=== PATIENT | male | born 1980 | race Two or more races ===

== ENCOUNTER 2021-01-31 10:39 | Inpatient (IN) | payer BC, SELFPAY ==
[2021-01-31] VITALS (10 sets, daily range): BP systolic 122–179; BP diastolic 69–90; PULSE 53–75; RESP 16–18; TEMP 37.1; O2SAT 96–98; BMI 37.4
--- NOTE | ~2021-01-31 | XR_ITS ---
EXAMINATION: XR CHEST CLINICAL INFORMATION: Chest pain. COMPARISON: 09/23/19. TECHNIQUE: Frontal view of the chest was obtained. FINDINGS: No significant abnormality is noted involving the heart, lungs, mediastinum, bony thorax or soft tissues. XR/XR chest 1V IMPRESSION: Unremarkable examination.
--- NOTE | 2021-01-31 10:51 | ED_ITS ---
HPI - Chest Pain General Chief Complaint: Chest Pain Stated Complaint: CHEST PAIN Time Seen by Provider: 01/31/21 10:48 Source: patient Mode of arrival: ambulatory Limitations: no limitations History of Present Illness HPI narrative: 40 yo male with HTN, pre-diabetic, hx of abnormal EKGs had remote stress test several years ago comes in with 1 day of central chest pain and dyspnea - has been burping a lot and having BMs after eating fries and wings, he has also noted 2 weeks of worsening AMADOR MD complaint: chest pain Pertinent past history: other (abnormal EKG) Onset (ago): day(s) (1) Timing of current episode: constant Prior episodes: Yes Onset: during rest and during exertion Pain location: left chest Pain radiation: left arm Severity: moderate Quality: aching and heaviness Relieving factors: nothing Exacerbating factors: nothing Context: other (ate heavily prior to event) Associated symptoms: dyspnea Treatment prior to arrival: none Related Data Allergies Allergy/AdvReac Type Severity Reaction Status Date / Time No Known Allergies Allergy Unverified 07/03/20 19:43 [No Known Allergies*] Review of Systems Review of Systems: Constitutional : No Weight loss, No Fever, No Chills ENT/Mouth : No sore throat, No Rhinorrhea Eyes: No Eye Pain, No Swelling Cardiovascular : pos Chest Pain, pos SOB, no Dyspnea on Exertion, No Orthopnea, No Edema, No Palpitations Respiratory : No Cough, No Sputum Gastrointestinal : no Nausea, No Vomiting, No Diarrhea, No abdominal Pain, No Hematochezia, No Melena Genitourinary : No Dysuria, No Urinary Frequency Musculoskeletal : No joint pain, No Myalgias, No Joint Swelling Skin : No Skin Lesions, No rash Neuro : No Weakness, No Numbness, No Dizziness, No Headache Psych : No Anxiety/Panic, No Depression Heme/Lymph: No Bruising, No Lymphadenopathy Endocrine : No Polyuria, No Polydipsia All other systems reviewed and are negative PMFSH Past Medical History Attestation statement: The following information was validated with the patient. Medical History HTN (hypertension) Family History Family History (Updated 01/31/21 @ 11:05 by Reyna Cummings DO) Other Heart disease Social History Social History Alcohol intake: never Smoking Status: Never smoker Use of substances other than those prescribed or required for medical reasons: No Advance Directives: No Advance Directives Information Provided: No Physical Exam Vital Signs: Vital Signs: Last Vital Signs Temp 98.7 F 01/31/21 10:41 Pulse 70 01/31/21 12:26 Resp 16 01/31/21 12:26 BP 154/90 H 01/31/21 12:26 Pulse Ox 98 01/31/21 12:26 Body Mass Index 37.4 Appearance: Alert. Oriented X3. No acute distress. Eyes: Pupils equal, round and reactive to light. ENT: Pharynx normal. Neck: Normal inspection. Neck supple. CVS: Normal heart rate and rhythm. Pulses normal. Respiratory: No respiratory distress. Breath sounds normal. Abdomen: Soft and nontender. Skin: Skin warm and dry. Normal skin color. Normal skin turgor. Extremities: No lower extremity edema. No calf ttp Neuro: Oriented X 3. No motor deficit. No sensory deficit. Course Course Course Narrative: refused morphine, will attempt nitro, I was unaware of the morphine refusal call to Cardiology [id number] heparinize and admit make pain free if remains with chest pain will need transfer Dr. Felipe patient improving with nitro, some residual pain but he is very scared now - IV fentayl ordered patient much more calm and improved after fentanyl, notified cardiology will admit here as planned MDM - Chest Pain MDM Narrative Medical decision making narrative: 40 yo male with hx of HTN, prediabetic nonsmoker, fam hx of heart disease but in father and brother who used cocaine and other drugs comes in with 2 weeks of worsening AMADOR as well as chest pain since yesterday with associated dyspnea after eating bulgarian fries and wings pain atypical for PE but does have some ACS risk factors although this could be GI given his belching and occurrence after wings and fries - labs, troponin x 2, CXR, IV morphine for pain, dispo per results and findings, no change from prior EKG Lab Data Result diagrams: 01/31/21 11:18 01/31/21 11:18 Labs: Lab Results 01/31/21 01/31/21 01/31/21 Range/Units 11:18 11:18 11:18 WBC 10.9 H (4.8-10.8) X10*3/uL RBC 5.90 H (4.60-5.80) X10*6/uL Hgb 16.5 (14.0-18.0) g/dl Hct 49.3 (42-52) % MCV 83.6 (80-98) fL MCH 28.0 (27.0-33.0) pg MCHC 33.5 (31.0-36.0) g/dl RDW 12.9 (11.0-16.0) % Plt Count 304 (160-400) X10*3/uL MPV 9.5 (9.4-12.4) fL Immature Gran % (Auto) 0.4 (0.0-0.4) % Neut % (Auto) 64.6 (45-73) % Lymph % (Auto) 26.5 (20-40) % [place] % (Auto) 7.5 (2-11) % Eos % (Auto) 0.4 (0-4) % Baso % (Auto) 0.6 (0-2) % Lymph # (Auto) 2.9 (1.2-4.9) X10*3/uL [place] # (Auto) 0.8 (0.1-1.2) X10*3/uL Eos # (Auto) 0.0 (0.0-0.4) X10*3/uL Baso # (Auto) 0.1 (0.0-0.2) X10*3/uL Abs Immat Gran (auto) 0.04 H (0.00-0.03) X10*3/uL Absolute Neuts (auto) 7.0 (2.0-8.3) X10*3/uL Absolute Nucleated RBC 0.000 (0.0-0.012) X10*3/uL Nucleated RBC % (auto) 0.0 (0.0-0.2) /100WBC PT (10.8-13.0) SEC INR (0.9-1.1) APTT (24.1-38.0) SEC Sodium 140 (135-145) mmol/L Potassium 4.4 (3.3-5.1) mmol/L Chloride 104 (96-108) mmol/L Carbon Dioxide 24 (22-29) mmol/L Anion Gap 16 (12-20) BUN 13 (9-16) mg/dL Creatinine 0.94 (0.5-1.4) mg/dL Estim Creat Clear Calc 126.5 Estimated GFR > 60 Random Glucose 137 H (60-115) mg/dL Calcium 9.3 (8.4-10.2) mg/dL Magnesium 1.9 (1.6-2.6) mg/dL Total Bilirubin 0.5 (0.0-1.0) mg/dL Direct Bilirubin 0.2 (0.0-0.5) mg/dL AST 45 H (5-37) U/L ALT 44 H (0-40) U/L Alkaline Phosphatase 125 H (39-117) U/L Troponin I High Sens (<3.5-35.0) ng/L Total Protein 7.3 (6.5-8.0) g/dL Albumin 4.3 (3.5-5.0) g/dL Lipase 16 (8-78) U/L 01/31/21 01/31/21 Range/Units 11:19 12:08 WBC (4.8-10.8) X10*3/uL RBC (4.60-5.80) X10*6/uL Hgb (14.0-18.0) g/dl Hct (42-52) % MCV (80-98) fL MCH (27.0-33.0) pg MCHC (31.0-36.0) g/dl RDW (11.0-16.0) % Plt Count (160-400) X10*3/uL MPV (9.4-12.4) fL Immature Gran % (Auto) (0.0-0.4) % Neut % (Auto) (45-73) % Lymph % (Auto) (20-40) % [place] % (Auto) (2-11) % Eos % (Auto) (0-4) % Baso % (Auto) (0-2) % Lymph # (Auto) (1.2-4.9) X10*3/uL [place] # (Auto) (0.1-1.2) X10*3/uL Eos # (Auto) (0.0-0.4) X10*3/uL Baso # (Auto) (0.0-0.2) X10*3/uL Abs Immat Gran (auto) (0.00-0.03) X10*3/uL Absolute Neuts (auto) (2.0-8.3) X10*3/uL Absolute Nucleated RBC (0.0-0.012) X10*3/uL Nucleated RBC % (auto) (0.0-0.2) /100WBC PT 13.5 H (10.8-13.0) SEC INR 1.1 (0.9-1.1) APTT 35.4 (24.1-38.0) SEC Sodium (135-145) mmol/L Potassium (3.3-5.1) mmol/L Chloride (96-108) mmol/L Carbon Dioxide (22-29) mmol/L Anion Gap (12-20) BUN (9-16) mg/dL Creatinine (0.5-1.4) mg/dL Estim Creat Clear Calc Estimated GFR Random Glucose (60-115) mg/dL Calcium (8.4-10.2) mg/dL Magnesium (1.6-2.6) mg/dL Total Bilirubin (0.0-1.0) mg/dL Direct Bilirubin (0.0-0.5) mg/dL AST (5-37) U/L ALT (0-40) U/L Alkaline Phosphatase (39-117) U/L Troponin I High Sens 2294.0 H (<3.5-35.0) ng/L Total Protein (6.5-8.0) g/dL Albumin (3.5-5.0) g/dL Lipase (8-78) U/L ECG Data ECG #1: Attestation: I personally reviewed and interpreted this ECG as follows: ECG interpretation date: 01/31/21 ECG interpretation time: 10:52 Interpretation: Rate: 58 Rhythm: sinus bradycardia [place]: normal Normal P waves. Normal DONALD. Normal QRS complex. ST T wave : no ALETHA, inverted I aVL, V4-V6 qTC: normal prior studies: no change from Sep 2019 The study has been interpreted contemporaneously by me. . Discharge Plan Discharge Clinical Impression: Non-ST elevation [place] (NSTEMI), Abnormal ECG Chest pain Qualifiers: Chest pain type: unspecified Qualified Code(s): R07.9 - Chest pain, unspecified Patient Disposition: Admitted As Inpatient
--- NOTE | 2021-01-31 11:30 | ECG_ITS ---
Test Reason : JENNIFER PAIN Blood Pressure : / mmHG Vent. Rate : 058 BPM Atrial Rate : 058 BPM P-R Int : 150 ms QRS Dur : 088 ms QT Int : 428 ms P-R-T Axes : 038 030 186 degrees QTc Int : [address] & Marked T-wave abnormality, consider inferolateral ischemia Abnormal ECG When compared with ECG of 23-SEP-2019 10:23, Vent. rate has decreased BY 28 BPM Referred By: Kwadwo Alcantara Electronically Signed By:Jamey Felipe
[2021-01-31 11:36] LABS: MANUAL DIFF FLAG NO
[2021-01-31] MEDS: Magnesium Hydrox/Alum Hydrox 30 ML ORAL.SUSP PO (11:39)
[2021-01-31] MEDS: Lidocaine HCl Viscous 2 % 15 ML SOLUTION MUCOUS MEM (11:39)
[2021-01-31] MEDS: ondansetron HCL 4 MG/2 ML VIAL IVPUSH (11:39)
[2021-01-31 11:43] LABS: Basophils Absolute Auto 0.1 X10*3/uL (0.0-0.2); Basophils Percent Auto 0.6 % (0-2); Eosinophils Percent Auto 0.4 % (0-4); Hematocrit 49.3 % (42-52); Hemoglobin 16.5 g/dl (14.0-18.0); Imm Gran Abs Auto 0.04 X10*3/uL (0.00-0.03); Imm Gran Pct Auto 0.4 % (0.0-0.4); Lymphocytes Absolute Auto 2.9 X10*3/uL (1.2-4.9); Lymphocytes Percent Auto 26.5 % (20-40); Mean Corpuscular HGB Conc 33.5 g/dl (31.0-36.0); Mean Corpuscular Volume 83.6 fL (80-98); Mean Platelet Volume 9.5 fL (9.4-12.4); Monocytes Absolute Auto 0.8 X10*3/uL (0.1-1.2); Monocytes Percent Auto 7.5 % (2-11); Neutrophils Percent Auto 64.6 % (45-73); Platelet Count 304 X10*3/uL (160-400); Red Cell Distribution Width 12.9 % (11.0-16.0); White Blood Count 10.9 X10*3/uL (4.8-10.8)
[2021-01-31 12:06] LABS: Lipase 16 U/L (8-78)
[2021-01-31 12:13] LABS: Alanine Aminotransferase 44 U/L (0-40); Albumin Level 4.3 g/dL (3.5-5.0); Alkaline Phosphatase 125 U/L (39-117); Anion Gap 16 (12-20); Aspartate Amino Transferase 45 U/L (5-37); Bilirubin Direct 0.2 mg/dL (0.0-0.5); Bilirubin Total 0.5 mg/dL (0.0-1.0); Blood Urea Nitrogen 13 mg/dL (9-16); Calcium 9.3 mg/dL (8.4-10.2); Carbon Dioxide 24 mmol/L (22-29); Chloride 104 mmol/L (96-108); Creatinine Clr Calc Pharmacy 126.5; Estimated Glomerular Filt Rate > 60; Glucose Random 137 mg/dL (60-115); Magnesium 1.9 mg/dL (1.6-2.6); Potassium 4.4 mmol/L (3.3-5.1); Sodium 140 mmol/L (135-145); Total Protein 7.3 g/dL (6.5-8.0)
[2021-01-31 12:21] LABS: INTERNATIONAL NORM RATIO 1.1 (0.9-1.1); Prothrombin Time 13.5 SEC (10.8-13.0)
[2021-01-31 12:23] LABS: Partial Thromboplastin Time 35.4 SEC (24.1-38.0)
[2021-01-31] MEDS: Aspirin 81 MG TAB.CHEW 324 MG PO (12:31)
[2021-01-31] MEDS: Atorvastatin Calcium 80 MG TABLET PO (12:32)
[2021-01-31] MEDS: Nitroglycerin 2 % Oint 1 GM Packet 1 INCH TRANSDERMA (12:32)
[2021-01-31] MEDS: fentaNYL citrate/PF 100 MCG/2 ML VIAL 50 MCG IVPUSH (13:01)
[2021-01-31] MEDS: Heparin Sodium,Porcine 5,000 UNIT/ML VIAL 4000 UNIT IVPUSH (13:02)
[2021-01-31] MEDS: Heparin Sodium,Porcine/1/2NS 25,000 UNIT/250 ML IV.SOLN 15.62 UNIT IVCONT (13:14)
--- NOTE | 2021-01-31 14:46 | P.EN_ITS ---
Event Note Date of Service: 01/31/21 Event Note: Past medical history of hypertension, prediabetic, nonsmoker, family history of coronary artery disease in brother and father per with history of cocaine use history of abnormal EKG is status post remote stress test several years ago presented to [facility] with chest discomfort on Tuesday duration and shortness of breath on exertion of 2 week duration In ER workup revealed elevated troponin 2294, EKGs abnormal with T-wave inversions in lateral leads but not changed since September 2019, chest x-ray unremarkable Patient chest pain improved with use of IV morphine, nitro and IV fentanyl, patient now complaining of 1/10 chest pain and denies shortness of breath On examination Patient awake alert in no distress Neck no JVD Lungs clear to auscultation Heart regular rate rhythm Extremities no edema Assessment and plan Non ST-elevation DE will admit patient to intermediate care unit on IV heparin, aspirin a statins and beta-vel, obtain lipid profile, echocardiogram, cardiology consult, if noted to have recurrent chest discomfort, change in EKG will discuss with Cardiology for transfer to [facility] for cardiac catheterization.
[2021-01-31] MEDS: Acetaminophen 325 MG TABLET 650 MG PO ×2 (14:49→20:38)
--- NOTE | 2021-01-31 15:06 | P.HPHOSP_ITS ---
History of Present Illness Date of Service: 01/31/21 <Steph Alva NP - Last Filed: 01/31/21 17:56> Chief Complaint: Chest pain <Steph Alva NP - Last Filed: 01/31/21 17:56> 40 year old man presenting with chest pain that started yesterday. He reported that he had been eatingAnd chicken wings started itching and central chest pain. He did report last 2 weeks he has increasing dyspnea. He history and prediabetes. Report his brother both coronary artery disease. In the ER he was given nitroglycerin, fentanyl, Lipitor and full-dose aspirin. His pain did seem to subside and rates it as a 1/10 at this time. He was also started on an IV heparin drip. His initial troponin was 2294. EKG showed ST depressions although previous EKG from before showed the same. He will be admitted for [facility] her management and treatment of NSTEMI. <Steph Alva NP - Last Filed: 01/31/21 17:56> Review of Systems Review of Systems: Denies any recent fever chills or decrease in appetite respiratory denies any shortness of breath coverage production cardiovascular See HPI gastrointestinal denies any dysphagia abdominal pain nausea vomiting or diarrhea genitourinary denies any dysuria frequency or hematuria musculoskeletal denies any joint pain or swelling neuropsych denies any weakness or seizures all other systems reviewed are negative <Steph Alva NP - Last Filed: 01/31/21 17:56> [facility] Medical History: Medical History HTN (hypertension) <Steph Alva NP - Last Filed: 01/31/21 17:56> Family History: Family History (Updated 01/31/21 @ 11:05 by Reyna Cummings DO) Other Heart disease <Steph Alva NP - Last Filed: 01/31/21 17:56> Social History: Social History Alcohol intake: never Smoking Status: Never smoker <Steph Alva NP - Last Filed: 01/31/21 17:56> Meds Allergies/Adverse reactions: Allergies Allergy/AdvReac Type Severity Reaction Status Date / Time No Known Allergies Allergy Unverified 07/03/20 19:43 [No Known Allergies*] <Steph Alva NP - Last Filed: 01/31/21 17:56> Active Medications: Current Medications Generic Name Dose Route Start Last Admin Trade Name Freq PRN Reason Stop Dose Admin Heparin Sodium (Porcine) 4,500 unit 01/31/21 12:28 Heparin Sodium,Porcine 5,000 Unit/Ml Vial 40 unit/kg (4500 unit) IVPUSH BOLUS PRN 40 unit/kg - Heparin Protocol Heparin Sodium/Sodium Chloride 25,000 unit in 250 mls @ 0 mls/hr 01/31/21 12:30 01/31/21 13:14 IVCONT 14 units/kg/hr .Q0M LUIS ALFREDO 15.62 mls/hr Administration Protocol Per Protocol <Steph Alva NP - Last Filed: 01/31/21 17:56> Physical Exam Vital Signs and Narrative: Vital Signs: Last Vital Signs Temp 98.7 F 01/31/21 10:41 Pulse 70 01/31/21 12:26 Resp 16 01/31/21 12:26 BP 154/90 H 01/31/21 12:26 Pulse Ox 98 01/31/21 12:26 Body Mass Index 37.4 <Steph Alva NP - Last Filed: 01/31/21 17:56> Appearing in no acute distress head is normocephalic atraumatic eyes pupils are PERRLA sclera is anicteric mouth throat mucous membranes are intact and moist neck is supple no lymphadenopathy, no JVD noted lung sounds are clear to auscultation heart regular rate rhythm, clear S1, S2 positive bowel sounds, abdomen is soft, nontender neuro patient is alert x3, no focal deficits <Steph Alva NP - Last Filed: 01/31/21 17:56> Results Labs CBC and Chem 7: : 02/01/21 04:37 02/01/21 04:37 <Steph Alva NP - Last Filed: 01/31/21 17:56> Labs: Laboratory Results - last 24 hr 01/31/21 01/31/21 01/31/21 11:18 11:18 11:18 MCV 83.6 MCH 28.0 MCHC 33.5 RDW 12.9 Plt Count 304 MPV 9.5 Immature Gran % (Auto) 0.4 Neut % (Auto) 64.6 Lymph % (Auto) 26.5 [place] % (Auto) 7.5 Eos % (Auto) 0.4 Baso % (Auto) 0.6 Lymph # (Auto) 2.9 [place] # (Auto) 0.8 Eos # (Auto) 0.0 Baso # (Auto) 0.1 Abs Immat Gran (auto) 0.04 H Absolute Neuts (auto) 7.0 Absolute Nucleated RBC 0.000 Nucleated RBC % (auto) 0.0 PT INR APTT Anion Gap 16 Estim Creat Clear Calc 126.5 Estimated GFR > 60 Random Glucose 137 H Calcium 9.3 Magnesium 1.9 Total Bilirubin 0.5 Direct Bilirubin 0.2 AST 45 H ALT 44 H Alkaline Phosphatase 125 H Troponin I High Sens Total Protein 7.3 Albumin 4.3 Lipase 16 01/31/21 01/31/21 11:19 12:08 MCV MCH MCHC RDW Plt Count MPV Immature Gran % (Auto) Neut % (Auto) Lymph % (Auto) [place] % (Auto) Eos % (Auto) Baso % (Auto) Lymph # (Auto) [place] # (Auto) Eos # (Auto) Baso # (Auto) Abs Immat Gran (auto) Absolute Neuts (auto) Absolute Nucleated RBC Nucleated RBC % (auto) PT 13.5 H INR 1.1 APTT 35.4 Anion Gap Estim Creat Clear Calc Estimated GFR Random Glucose Calcium Magnesium Total Bilirubin Direct Bilirubin AST ALT Alkaline Phosphatase Troponin I High Sens 2294.0 H Total Protein Albumin Lipase <Steph Alva NP - Last Filed: 01/31/21 17:56> Imaging Radiologist's Impressions: Impressions Chest X-Ray 01/31/21 10:49 IMPRESSION: Unremarkable examination. <Steph Alva NP - Last Filed: 01/31/21 17:56> Assessment and Plan (1) Chest pain: Qualifiers: Chest pain type: unspecified Qualified Code(s): R07.9 - Chest pain, unspecified <Steph Alva NP - Last Filed: 01/31/21 17:56> Status: Acute <Steph Alva NP - Last Filed: 01/31/21 17:56> (2) Non-ST elevation [place] (NSTEMI): Status: Acute <Steph Alva NP - Last Filed: 01/31/21 17:56> 40-year-old man admitted with NSTEMI. Patient reports history of blood pressure and pre diabetes in the family history of coronary artery disease. He was eating [place] fries and chicken wings and developed belching and central chest pain. NSTEMI. Elevated troponin and noted EKG changes. chest pain improved with nitroglycerin, fentanyl and morphine. - started on IV heparin drip - aspirin and statin - cardiology consultation - trend troponin - will likely need catheterization in the next few days. - PPI Pre diabetes. Not on home medications. - Add A1c obesity. BMI 37.4. - Discussed the importance of weight loss as this may be contributing to worsening other comorbidities. DVT prophylaxis with IV heparin Attending: Dr. Perez <Steph Alva NP - Last Filed: 01/31/21 17:56>
[2021-01-31 15:38] LABS: COVID-19 Test Negative (Negative); IDNOW Serial# 9DD0AD1C
[2021-01-31 16:21] LABS: Erythrocyte Sedimentation Rate 2 MM/HR (0-15)
[2021-01-31 16:48] LABS: Amphetamine Screen Urine Not Detected (Not Detect); Barbiturates, Urine Not Detected (Not Detect); Benzodiazepines Screen Urine Not Detected (Not Detect); Cannabinoid Screen Urine Not Detected (Not Detect); Cocaine Screen Urine Not Detected (Not Detect); Opiate Screen Urine Not Detected (Not Detect); Phencyclidine Screen Urine Not Detected (Not Detect)
[2021-01-31] MEDS: Morphine Sulfate 2 MG/ML CARTRIDGE IVPUSH ×2 (17:09→20:38)
[2021-01-31 20:35] LABS: PTT Heparin Drip 93.6 SEC (53-77.9)
--- NOTE | 2021-01-31 21:38 | PC.NURSE ---
Heparin Drip infusion paused at 21:35 per protocol based on PTT heparin value of 93.6. Per protocol, Heparin drip to be stopped for 1 hour, and resumed at 22:35 at 11 units/kg/hour. Cosigned with Aydee Lau RN. Primary RN (Cici Arenas) aware.
[2021-02-01] VITALS (9 sets, daily range): BP systolic 123–152; BP diastolic 64–80; PULSE 54–75; RESP 16–18; O2SAT 97–99
--- NOTE | 2021-02-01 | ECG_ITS ---
Test Reason : REPEAT Blood Pressure : / mmHG Vent. Rate : 058 BPM Atrial Rate : 058 BPM P-R Int : 154 ms QRS Dur : 080 ms QT Int : 426 ms P-R-T Axes : 050 046 207 degrees QTc Int : 418 ms Sinus bradycardia Anterolateral T wave inversions and ST depressions Abnormal ECG When compared with ECG of 31-JAN-2021 10:45, No significant change was found Referred By: Kwadwo Alcantara Electronically Signed By:Jamey Felipe
[2021-02-01] MEDS: Morphine Sulfate 2 MG/ML CARTRIDGE IVPUSH ×2 (00:06→04:34)
[2021-02-01 02:35] LABS: PTT Heparin Drip 63.9 SEC (53-77.9)
--- NOTE | 2021-02-01 03:18 | PC.NURSE ---
heparin drip remains unchanged with the last lab draw. ptthd 63.9 rate remains at 11u/kg/h
[2021-02-01 04:43] LABS: MANUAL DIFF FLAG NO
[2021-02-01 04:45] LABS: Basophils Absolute Auto 0.1 X10*3/uL (0.0-0.2); Basophils Percent Auto 0.7 % (0-2); Eosinophils Percent Auto 0.2 % (0-4); Hematocrit 47.7 % (42-52); Hemoglobin 15.7 g/dl (14.0-18.0); Imm Gran Abs Auto 0.02 X10*3/uL (0.00-0.03); Imm Gran Pct Auto 0.1 % (0.0-0.4); Lymphocytes Absolute Auto 3.3 X10*3/uL (1.2-4.9); Lymphocytes Percent Auto 24.4 % (20-40); Mean Corpuscular HGB Conc 32.9 g/dl (31.0-36.0); Mean Corpuscular Hemoglobin 27.9 pg (27.0-33.0); Mean Corpuscular Volume 84.9 fL (80-98); Mean Platelet Volume 9.3 fL (9.4-12.4); Monocytes Absolute Auto 1.1 X10*3/uL (0.1-1.2); Monocytes Percent Auto 8.3 % (2-11); Neutrophils Absolute Auto 8.9 X10*3/uL (2.0-8.3); Neutrophils Percent Auto 66.3 % (45-73); Platelet Count 266 X10*3/uL (160-400); Red Blood Count 5.62 X10*6/uL (4.60-5.80); Red Cell Distribution Width 13.2 % (11.0-16.0); White Blood Count 13.4 X10*3/uL (4.8-10.8)
--- NOTE | 2021-02-01 04:45 | PC.NURSE ---
Pt chest discomfort returning approx every 4 hours after morphine is given. on the monitor there is a question of a change in the depth of the depression. 12 lead done.
[2021-02-01 04:50] LABS: INTERNATIONAL NORM RATIO 1.2 (0.9-1.1); Prothrombin Time 14.5 SEC (10.8-13.0)
[2021-02-01 05:20] LABS: Anion Gap 15 (12-20); Blood Urea Nitrogen 12 mg/dL (9-16); Calcium 9.2 mg/dL (8.4-10.2); Carbon Dioxide 26 mmol/L (22-29); Chloride 101 mmol/L (96-108); Creatinine Clr Calc Pharmacy 117.8; Estimated Glomerular Filt Rate > 60; Glucose Random 150 mg/dL (60-115); Potassium 3.9 mmol/L (3.3-5.1); Sodium 138 mmol/L (135-145)
--- NOTE | 2021-02-01 05:57 | P.EN_ITS ---
Event Note Date of Service: 02/01/21 Event Note: Chest pain: Patient mentioned that when he came in his chest pain was 10/10, he weak, radiating to the left arm. Currently his chest pain at 5/10, nonradiating. No associated lightheadedness dizziness or sweating. Repeat EKG showed similar changes of the prior EKG with T-wave inversions in the lateral leads. EKGs forwarded to Dr. Felipe, and discussed the case, recommended Plavix loading and metoprolol 25 mg b.i.d and he will evaluate the patient in the [facility] and decide on further management; Did not recommend any transfer at this moment. Patient is currently having Nitropatch and heparin drip is running.
[2021-02-01] MEDS: Clopidogrel Bisulfate 300 MG TABLET PO (06:11)
[2021-02-01 08:06] LABS: Cholesterol 201 mg/dL; HDL Cholesterol 44 mg/dL; LDL Cholesterol Calculated 134 mg/dl; Triglycerides 117 mg/dL
[2021-02-01] MEDS: Metoprolol Tartrate 25 MG TABLET PO (08:59)
[2021-02-01] MEDS: Aspirin Enteric Coated 81 MG TABLET.DR PO (08:59)
[2021-02-01 09:07] LABS: PTT Heparin Drip 62.5 SEC (53-77.9)
--- NOTE | 2021-02-01 09:22 | PM.CNCAR ---
History of Present Illness History of Present Illness Date of Service: 02/01/21 Requesting physician: Karen Perez Chief complaint: NSTEMI Narrative: 40-year-old gentleman presenting for CP and NSTEMI. He has background of migraine, hypertension and prediabetes. He has been experiencing fatigue for 2 weeks. Tuesday evening he started having chest discomfort which was a tightness in the chest as well as arm discomfort. He said this started around 19:00 and then continue to 10:00 when he came to the ER. In the ER he was noticed to have abnormal troponin level and ruled in for NSTEMI. He has ECG is abnormal and has anterolateral ST depression T-wave inversions suggestive of apical hypertrophy and ECG was unchanged compared to before. He was given nitroglycerin his symptoms improved. Overnight I got a call that he was having ongoing chest discomfort requiring morphine. His repeat troponin levels were 8000. He was given Plavix and beta-vel at that stage. I was told that his symptoms improved after that again. This morning he was seen and interviewed. He is saying he has no chest discomfort. He is denying any shortness of breath. No bleeding issues in the past. He has been on heparin drip. He was loaded with 300 mg of Plavix last night. Review of Systems Review of Systems: No symptoms Yes all other systems are reviewed and are negative PMFSH Past Medical History Medical History HTN (hypertension) Family History Family History (Updated 01/31/21 @ 11:05 by Reyna Cummings DO) Other Heart disease Social History Social History Alcohol intake: never Smoking Status: Never smoker Use of substances other than those prescribed or required for medical reasons: No Advance Directives: No Advance Directives Information Provided: No Meds Allergies Allergy/AdvReac Type Severity Reaction Status Date / Time No Known Allergies Allergy Unverified 07/03/20 19:43 [No Known Allergies*] Active Medications: Current Medications Generic Name Dose Route Start Last Admin Trade Name Freq PRN Reason Stop Dose Admin Acetaminophen 650 mg 01/31/21 15:25 01/31/21 20:38 Acetaminophen 325 Mg Tablet PO 650 mg Q6H PRN Administration Pain, Mild (Pain Scale 1-3) Amlodipine Besylate 5 mg 02/01/21 09:00 Amlodipine Besylate 5 Mg Tablet PO DAILY [facility] Protocol Aspirin 81 mg 02/01/21 09:00 02/01/21 08:59 Aspirin Enteric Coated 81 Mg Tablet.Dr PO 81 mg DAILY [facility] Administration Atorvastatin Calcium 80 mg 02/01/21 21:00 Atorvastatin Calcium 80 Mg Tablet PO BEDTIME [facility] Heparin Sodium (Porcine) 4,500 unit 01/31/21 12:28 Heparin Sodium,Porcine 5,000 Unit/Ml Vial 40 unit/kg (4500 unit) IVPUSH BOLUS PRN 40 unit/kg - Heparin Protocol Heparin Sodium/Sodium Chloride 25,000 unit in 250 mls @ 0 mls/hr 01/31/21 12:30 01/31/21 22:35 IVCONT 11 units/kg/hr .Q0M [facility] 12.27 mls/hr Titration Protocol Per Protocol Metoprolol Tartrate 25 mg 02/01/21 09:00 02/01/21 08:59 Metoprolol Tartrate 25 Mg Tablet PO 25 mg BID [facility] Administration Protocol Morphine Sulfate 2 mg 01/31/21 15:26 02/01/21 04:34 Morphine Sulfate 2 Mg/Ml Cartridge IVPUSH 2 mg Q4H PRN Administration Pain, Mild (Pain Scale 1-3) Ondansetron HCl 4 mg 01/31/21 15:25 Ondansetron Hcl 4 Mg/2 Ml Vial IVPUSH Q8H PRN Nausea and Vomiting Sodium Chloride 3 ml 01/31/21 16:00 02/01/21 00:22 0.9 % Sodium Chloride Flush 3 Ml Syringe [facility] Exam Vital Signs: Vital Signs: Last Vital Signs Temp 98.7 F 01/31/21 10:41 Pulse 65 02/01/21 08:59 Resp 18 02/01/21 06:13 BP 152/78 H 02/01/21 08:59 Pulse Ox 97 02/01/21 06:13 Body Mass Index 37.4 GENERAL APPEARANCE: in no acute distress, well developed, well nourished. HEENT: unremarkable. HEAD: normocephalic, atraumatic. NECK/THYROID: no carotid bruit, no jugular venous distention. SKIN: no suspicious lesions, warm and dry. HEART: no murmurs, regular rate and rhythm, S1, S2 normal. LUNGS: clear to auscultation bilaterally. ABDOMEN: normal, bowel sounds present, soft, nontender, nondistended. EXTREMITIES: no clubbing, cyanosis, or edema. PERIPHERAL PULSES: equal. NEUROLOGIC: nonfocal, alert and oriented. PSYCH: mood/affect full range. Results Labs and Meds Result diagrams: 02/01/21 04:37 02/01/21 04:37 Lab results: Laboratory Results - last 24 hr 01/31/21 01/31/21 01/31/21 11:18 11:18 11:18 WBC 10.9 H RBC 5.90 H Hgb 16.5 Hct 49.3 MCV 83.6 MCH 28.0 MCHC 33.5 RDW 12.9 Plt Count 304 MPV 9.5 Immature Gran % (Auto) 0.4 Neut % (Auto) 64.6 Lymph % (Auto) 26.5 [place] % (Auto) 7.5 Eos % (Auto) 0.4 Baso % (Auto) 0.6 Lymph # (Auto) 2.9 [place] # (Auto) 0.8 Eos # (Auto) 0.0 Baso # (Auto) 0.1 Abs Immat Gran (auto) 0.04 H Absolute Neuts (auto) 7.0 Absolute Nucleated RBC 0.000 Nucleated RBC % (auto) 0.0 ESR PT INR APTT PTT (Heparin Protocol) Sodium 140 Potassium 4.4 Chloride 104 Carbon Dioxide 24 Anion Gap 16 BUN 13 Creatinine 0.94 Estim Creat Clear Calc 126.5 Estimated GFR > 60 Random Glucose 137 H Calcium 9.3 Magnesium 1.9 Total Bilirubin 0.5 Direct Bilirubin 0.2 AST 45 H ALT 44 H Alkaline Phosphatase 125 H Troponin I High Sens Total Protein 7.3 Albumin 4.3 Triglycerides Cholesterol LDL Cholesterol, Calc HDL Cholesterol Lipase 16 Urine Opiates Screen Ur Barbiturates Screen Ur Phencyclidine Scrn Ur Amphetamines Screen U Benzodiazepines Scrn Urine Cocaine Screen U Marijuana (THC) Screen COVID-19 ([facility]G) COVID-19 Clin Com 01/31/21 01/31/21 01/31/21 11:18 11:19 12:08 WBC RBC Hgb Hct MCV MCH MCHC RDW Plt Count MPV Immature Gran % (Auto) Neut % (Auto) Lymph % (Auto) [place] % (Auto) Eos % (Auto) Baso % (Auto) Lymph # (Auto) [place] # (Auto) Eos # (Auto) Baso # (Auto) Abs Immat Gran (auto) Absolute Neuts (auto) Absolute Nucleated RBC Nucleated RBC % (auto) ESR 2 PT 13.5 H INR 1.1 APTT 35.4 PTT (Heparin Protocol) Sodium Potassium Chloride Carbon Dioxide Anion Gap BUN Creatinine Estim Creat Clear Calc Estimated GFR Random Glucose Calcium Magnesium Total Bilirubin Direct Bilirubin AST ALT Alkaline Phosphatase Troponin I High Sens 2294.0 H Total Protein Albumin Triglycerides Cholesterol LDL Cholesterol, Calc HDL Cholesterol Lipase Urine Opiates Screen Ur Barbiturates Screen Ur Phencyclidine Scrn Ur Amphetamines Screen U Benzodiazepines Scrn Urine Cocaine Screen U Marijuana (THC) Screen COVID-19 (YUNG) COVID-[facility]orm 01/31/21 01/31/21 01/31/21 15:14 16:11 20:17 WBC RBC Hgb Hct MCV MCH MCHC RDW Plt Count MPV Immature Gran % (Auto) Neut % (Auto) Lymph % (Auto) [place] % (Auto) Eos % (Auto) Baso % (Auto) Lymph # (Auto) [place] # (Auto) Eos # (Auto) Baso # (Auto) Abs Immat Gran (auto) Absolute Neuts (auto) Absolute Nucleated RBC Nucleated RBC % (auto) ESR PT INR APTT PTT (Heparin Protocol) 93.6 H Sodium Potassium Chloride Carbon Dioxide Anion Gap BUN Creatinine Estim Creat Clear Calc Estimated GFR Random Glucose Calcium Magnesium Total Bilirubin Direct Bilirubin AST ALT Alkaline Phosphatase Troponin I High Sens Total Protein Albumin Triglycerides Cholesterol LDL Cholesterol, Calc HDL Cholesterol Lipase Urine Opiates Screen Not Detected Ur Barbiturates Screen Not Detected Ur Phencyclidine Scrn Not Detected Ur Amphetamines Screen Not Detected U Benzodiazepines Scrn Not Detected Urine Cocaine Screen Not Detected U Marijuana (THC) Screen Not Detected COVID-19 (YUNG) Negative COVID-ScribeStorm See Note 02/01/21 02/01/21 02/01/21 02:07 04:37 04:37 WBC 13.4 H RBC 5.62 Hgb 15.7 Hct 47.7 MCV 84.9 MCH 27.9 MCHC 32.9 RDW 13.2 Plt Count 266 MPV 9.3 L Immature Gran % (Auto) 0.1 Neut % (Auto) 66.3 Lymph % (Auto) 24.4 [place] % (Auto) 8.3 Eos % (Auto) 0.2 Baso % (Auto) 0.7 Lymph # (Auto) 3.3 [place] # (Auto) 1.1 Eos # (Auto) 0.0 Baso # (Auto) 0.1 Abs Immat Gran (auto) 0.02 Absolute Neuts (auto) 8.9 H Absolute Nucleated RBC 0.000 Nucleated RBC % (auto) 0.0 ESR PT 14.5 H INR 1.2 H APTT PTT (Heparin Protocol) 63.9 D Sodium Potassium Chloride Carbon Dioxide Anion Gap BUN Creatinine Estim Creat Clear Calc Estimated GFR Random Glucose Calcium Magnesium Total Bilirubin Direct Bilirubin AST ALT Alkaline Phosphatase Troponin I High Sens Total Protein Albumin Triglycerides Cholesterol LDL Cholesterol, Calc HDL Cholesterol Lipase Urine Opiates Screen Ur Barbiturates Screen Ur Phencyclidine Scrn Ur Amphetamines Screen U Benzodiazepines Scrn Urine Cocaine Screen U Marijuana (THC) Screen COVID-19 (YUNG) COVID-19 Clin Com 02/01/21 02/01/21 02/01/21 04:37 04:37 08:21 WBC RBC Hgb Hct MCV MCH MCHC RDW Plt Count MPV Immature Gran % (Auto) Neut % (Auto) Lymph % (Auto) [place] % (Auto) Eos % (Auto) Baso % (Auto) Lymph # (Auto) [place] # (Auto) Eos # (Auto) Baso # (Auto) Abs Immat Gran (auto) Absolute Neuts (auto) Absolute Nucleated RBC Nucleated RBC % (auto) ESR PT INR APTT PTT (Heparin Protocol) 62.5 Sodium 138 Potassium 3.9 Chloride 101 Carbon Dioxide 26 Anion Gap 15 BUN 12 Creatinine 1.01 Estim Creat Clear Calc 117.8 Estimated GFR > 60 Random Glucose 150 H Calcium 9.2 Magnesium Total Bilirubin Direct Bilirubin AST ALT Alkaline Phosphatase Troponin I High Sens 8338.6 H D Total Protein Albumin Triglycerides 117 Cholesterol 201 LDL Cholesterol, Calc 134 HDL Cholesterol 44 Lipase Urine Opiates Screen Ur Barbiturates Screen Ur Phencyclidine Scrn Ur Amphetamines Screen U Benzodiazepines Scrn Urine Cocaine Screen U Marijuana (THC) Screen COVID-19 (YUNG) COVID-19 Clin Com Imaging Radiologist's impression: Impressions Chest X-Ray 01/31/21 10:49 IMPRESSION: Unremarkable examination. Assessment and Plan (1) Non-ST elevation MT (NSTEMI): Status: Acute Pleasant 40-year-old gentleman here for chest discomfort and ruled in for NSTEMI. He has EKG has been abnormal and is suggestive of apical hypertrophy. I did a bedside echocardiogram and basal inferolateral wall looks hypokinetic. He has some images suggestive of apical hypertrophy. Blood pressure was elevated and we have added amlodipine 5 mg to his regimen. He is on 25 mg p.o. b.i.d. better her on a loading with anemia Plavix. I think he should stay on aspirin and Plavix going forward. He has been on heparin drip. I have discussed with him about cardiac catheterization and is agreeable. We are going to transfer him today because it just in case he starts having chest pain again he may need to go to cath lab manager. If he stays stable to tomorrow that tomorrow morning we will do cardiac catheterization. Will check echocardiogram at [facility] to assess for wall motion as well as apical hypertrophy. He has no family history of sudden cardiac . Thank you for allowing me to participate in the care of your patient. Please feel free to contact me if you have any questions.
[2021-02-01] MEDS: Heparin Sodium,Porcine/1/2NS 25,000 UNIT/250 ML IV.SOLN 12.27 UNIT IVCONT (09:33)
--- NOTE | 2021-02-01 10:01 | PC.NURSE ---
called to give nurse to nurse, spoke with mason and she stated RN will call back
[2021-02-01] MEDS: amLODIPine Besylate 5 MG TABLET PO (10:12)
--- NOTE | 2021-02-01 10:22 | PC.NURSE ---
patient transferred to [facility], report given to Franca CRUZ
--- NOTE | 2021-02-01 11:13 | P.DS_ITS ---
DS: Providers Provider Date of Service: 02/01/21 <Steph Alva NP - Last Filed: 02/01/21 14:54> 02/01/21 <Karen Perez MD - Last Filed: 02/01/21 16:00> Date of admission: 01/31/21 15:25 <Steph Alva NP - Last Filed: 02/01/21 14:54> Primary care physician: Unknown Physician <Steph Alva NP - Last Filed: 02/01/21 14:54> Consults: 01/31/21 15:26 Consult to Cardiology Routine Consulting Provider: Jamey Felipe Reason for consultation: chest pain, nstemi Has provider been notified: No <Steph Alva NP - Last Filed: 02/01/21 14:54> DS: Diagnosis Discharge Diagnosis (1) Chest pain: Status: Acute <Steph Alva NP - Last Filed: 02/01/21 14:54> (2) Non-ST elevation NM (NSTEMI): Status: Acute <Steph Alva NP - Last Filed: 02/01/21 14:54> DS: Medications Discharge Medications Home Medications: Home Medications Medication Instructions Recorded Confirmed propranolol 1 cap PO DAILY 01/31/21 01/31/21 <Steph Alva NP - Last Filed: 02/01/21 14:54> DS: Summary Hospital Course Hospital Course: HP as per admitting provider 40 year old man presenting with chest pain that started yesterday. He reported that he had been eatingAnd chicken wings started itching and central chest pain. He did report last 2 weeks he has increasing dyspnea. He history and prediabetes. Report his brother both coronary artery disease. In the ER he was given nitroglycerin, fentanyl, Lipitor and full-dose aspirin. His pain did seem to subside and rates it as a 1/10 at this time. He was also started on an IV heparin drip. His initial troponin was 2294. EKG showed ST depressions although previous EKG from before showed the same. He will be admitted for further management and treatment of NSTEMI . NSTEMI. Initially presented with centralized chest pain with improvement with nitroglycerin, fentanyl morphine. Patient did have some EKG changes, however they appear to be similar to previous EKG with areas of ST depression. His troponin did trend up from 2294 to a 8338.6. He was started on and now on IV h eparin drip, aspirin, statin, beta-vel and plavix. He was seen and evaluated by Cardiology and the decision was made to transfer him to [facility] for further treatment including cardiac catheterization. At this time patient is chest pain-free, he will continue on IV heparin drip for transfer. Hypertension. Systolic blood pressure in the 150s. Placed on amlodipine for optimization of blood pressure. Pre diabetes. He is prediabetic however did not require any insulin during admission. Encouraged to continue diabetic diet at home. Check A1C outpatient. Attending: Dr. Perez <Steph Alva NP - Last Filed: 02/01/21 14:54> Time Spent with Patient Time attestation: Total time spent providing and/or coordinating discharge services: <Steph Alva NP - Last Filed: 02/01/21 14:54> Discharge coordination time: Greater than 30 minutes <Steph Alva NP - Last Filed: 02/01/21 14:54> Physical Exam Vital Signs: Vital Signs: Last Vital Signs Temp 98.7 F 01/31/21 10:41 Pulse 75 02/01/21 10:12 Resp 18 02/01/21 06:13 BP 139/75 02/01/21 10:12 Pulse Ox 97 02/01/21 06:13 Body Mass Index 37.4 <Steph Alva NP - Last Filed: 02/01/21 14:54> Appearing in no acute distress head is normocephalic atraumatic eyes pupils are PERRLA sclera is anicteric mouth throat mucous membranes are intact and moist neck is supple no lymphadenopathy, no JVD noted lung sounds are clear to auscultation heart regular rate rhythm, clear S1, S2 positive bowel sounds, abdomen is soft, nontender neuro patient is alert x3, no focal deficits <Steph Alva NP - Last Filed: 02/01/21 14:54> DS: Data Data Completed and Pending Labs on day of discharge: Laboratory Results - last 24 hr 01/31/21 01/31/21 01/31/21 11:18 11:18 11:18 WBC 10.9 H RBC 5.90 H Hgb 16.5 Hct 49.3 MCV 83.6 MCH 28.0 MCHC 33.5 RDW 12.9 Plt Count 304 MPV 9.5 Immature Gran % (Auto) 0.4 Neut % (Auto) 64.6 Lymph % (Auto) 26.5 [place] % (Auto) 7.5 Eos % (Auto) 0.4 Baso % (Auto) 0.6 Lymph # (Auto) 2.9 [place] # (Auto) 0.8 Eos # (Auto) 0.0 Baso # (Auto) 0.1 Abs Immat Gran (auto) 0.04 H Absolute Neuts (auto) 7.0 Absolute Nucleated RBC 0.000 Nucleated RBC % (auto) 0.0 ESR PT INR APTT PTT (Heparin Protocol) Sodium 140 Potassium 4.4 Chloride 104 Carbon Dioxide 24 Anion Gap 16 BUN 13 Creatinine 0.94 Estim Creat Clear Calc 126.5 Estimated GFR > 60 Random Glucose 137 H Calcium 9.3 Magnesium 1.9 Total Bilirubin 0.5 Direct Bilirubin 0.2 AST 45 H ALT 44 H Alkaline Phosphatase 125 H Troponin I High Sens Total Protein 7.3 Albumin 4.3 Triglycerides Cholesterol LDL Cholesterol, Calc HDL Cholesterol Lipase 16 Urine Opiates Screen Ur Barbiturates Screen Ur Phencyclidine Scrn Ur Amphetamines Screen U Benzodiazepines Scrn Urine Cocaine Screen U Marijuana (THC) Screen COVID-19 ([facility]) COVID-19 [place] Com 01/31/21 01/31/21 01/31/21 11:18 11:19 12:08 WBC RBC Hgb Hct MCV MCH MCHC RDW Plt Count MPV Immature Gran % (Auto) Neut % (Auto) Lymph % (Auto) [place] % (Auto) Eos % (Auto) Baso % (Auto) Lymph # (Auto) [place] # (Auto) Eos # (Auto) Baso # (Auto) Abs Immat Gran (auto) Absolute Neuts (auto) Absolute Nucleated RBC Nucleated RBC % (auto) ESR 2 PT 13.5 H INR 1.1 APTT 35.4 PTT (Heparin Protocol) Sodium Potassium Chloride Carbon Dioxide Anion Gap BUN Creatinine Estim Creat Clear Calc Estimated GFR Random Glucose Calcium Magnesium Total Bilirubin Direct Bilirubin AST ALT Alkaline Phosphatase Troponin I High Sens 2294.0 H Total Protein Albumin Triglycerides Cholesterol LDL Cholesterol, Calc HDL Cholesterol Lipase Urine Opiates Screen Ur Barbiturates Screen Ur Phencyclidine Scrn Ur Amphetamines Screen U Benzodiazepines Scrn Urine Cocaine Screen U Marijuana (THC) Screen COVID-19 ([facility]UNG) COVID-19 [employer] Com 01/31/21 01/31/21 01/31/21 15:14 16:11 20:17 WBC RBC Hgb Hct MCV MCH MCHC RDW Plt Count MPV Immature Gran % (Auto) Neut % (Auto) Lymph % (Auto) [place] % (Auto) Eos % (Auto) Baso % (Auto) Lymph # (Auto) [place] # (Auto) Eos # (Auto) Baso # (Auto) Abs Immat Gran (auto) Absolute Neuts (auto) Absolute Nucleated RBC Nucleated RBC % (auto) ESR PT INR APTT PTT (Heparin Protocol) 93.6 H Sodium Potassium Chloride Carbon Dioxide Anion Gap BUN Creatinine Estim Creat Clear Calc Estimated GFR Random Glucose Calcium Magnesium Total Bilirubin Direct Bilirubin AST ALT Alkaline Phosphatase Troponin I High Sens Total Protein Albumin Triglycerides Cholesterol LDL Cholesterol, Calc HDL Cholesterol Lipase Urine Opiates Screen Not Detected Ur Barbiturates Screen Not Detected Ur Phencyclidine Scrn Not Detected Ur Amphetamines Screen Not Detected U Benzodiazepines Scrn Not Detected Urine Cocaine Screen Not Detected U Marijuana (THC) Screen Not Detected COVID-19 (YUNG) Negative COVID-19 Clin Com See Note 02/01/21 02/01/21 02/01/21 02:07 04:37 04:37 WBC 13.4 H RBC 5.62 Hgb 15.7 Hct 47.7 MCV 84.9 MCH 27.9 MCHC 32.9 RDW 13.2 Plt Count 266 MPV 9.3 L Immature Gran % (Auto) 0.1 Neut % (Auto) 66.3 Lymph % (Auto) 24.4 [place] % (Auto) 8.3 Eos % (Auto) 0.2 Baso % (Auto) 0.7 Lymph # (Auto) 3.3 [place] # (Auto) 1.1 Eos # (Auto) 0.0 Baso # (Auto) 0.1 Abs Immat Gran (auto) 0.02 Absolute Neuts (auto) 8.9 H Absolute Nucleated RBC 0.000 Nucleated RBC % (auto) 0.0 ESR PT 14.5 H INR 1.2 H APTT PTT (Heparin Protocol) 63.9 D Sodium Potassium Chloride Carbon Dioxide Anion Gap BUN Creatinine Estim Creat Clear Calc Estimated GFR Random Glucose Calcium Magnesium Total Bilirubin Direct Bilirubin AST ALT Alkaline Phosphatase Troponin I High Sens Total Protein Albumin Triglycerides Cholesterol LDL Cholesterol, Calc HDL Cholesterol Lipase Urine Opiates Screen Ur Barbiturates Screen Ur Phencyclidine Scrn Ur Amphetamines Screen U Benzodiazepines Scrn Urine Cocaine Screen U Marijuana (THC) Screen COVID-19 (YUNG) COVID-19 Clin Com 02/01/21 02/01/21 02/01/21 04:37 04:37 08:21 WBC RBC Hgb Hct MCV MCH MCHC RDW Plt Count MPV Immature Gran % (Auto) Neut % (Auto) Lymph % (Auto) [place] % (Auto) Eos % (Auto) Baso % (Auto) Lymph # (Auto) [place] # (Auto) Eos # (Auto) Baso # (Auto) Abs Immat Gran (auto) Absolute Neuts (auto) Absolute Nucleated RBC Nucleated RBC % (auto) ESR PT INR APTT PTT (Heparin Protocol) 62.5 Sodium 138 Potassium 3.9 Chloride 101 Carbon Dioxide 26 Anion Gap 15 BUN 12 Creatinine 1.01 Estim Creat Clear Calc 117.8 Estimated GFR > 60 Random Glucose 150 H Calcium 9.2 Magnesium Total Bilirubin Direct Bilirubin AST ALT Alkaline Phosphatase Troponin I High Sens 8338.6 H D Total Protein Albumin Triglycerides 117 Cholesterol 201 LDL Cholesterol, Calc 134 HDL Cholesterol 44 Lipase Urine Opiates Screen Ur Barbiturates Screen Ur Phencyclidine Scrn Ur Amphetamines Screen U Benzodiazepines Scrn Urine Cocaine Screen U Marijuana (THC) Screen COVID-19 (YUNG) COVID-19 Clin Com <Steph Alva NP - Last Filed: 02/01/21 14:54> Discharge Plan Discharge Anticipated Discharge Date/Time: 02/01/21 11:13 <Steph Alva NP - Last Filed: 02/01/21 14:54> Patient Disposition: [facility] <Steph Alva NP - Last Filed: 02/01/21 14:54> Discharge Diagnosis: Non ST-elevation NM <Steph Alva NP - Last Filed: 02/01/21 14:54> Non ST-elevation NM <Karen Perez MD - Last Filed: 02/01/21 16:00> Referrals: Physician,Unknown [Primary Care Provider] - 1 Week <Steph Alva NP - Last Filed: 02/01/21 14:54> Discharge Medications: New atorvastatin 80 mg Tablet 80 mg PO BEDTIME Qty: 0 RF: 0 amlodipine 5 mg Tablet 5 mg PO DAILY Qty: 0 RF: 0 metoprolol tartrate 25 mg Tablet 25 mg PO BID Qty: 0 RF: 0 heparin(porcine) in 0.45% NaCl 25,000 unit/250 mL Parenteral Solution 25,000 unit continuous IV infusion .Q0M Qty: 0 RF: 0 Discontinued propranolol 80 mg capsule,extended release 24 hr 1 cap PO DAILY RF: 0 <Steph Alva NP - Last Filed: 02/01/21 14:54> Discharge Orders: Discharge Order (Routine); Ordered 02/01/21 Ordered By: Steph Alva <Steph Alva NP - Last Filed: 02/01/21 14:54> Diet: low salt diet <Steph Alva NP - Last Filed: 02/01/21 14:54> low salt diet <Karen Perez MD - Last Filed: 02/01/21 16:00> Activity on Discharge: As tolerated <Steph Alva NP - Last Filed: 02/01/21 14:54> As tolerated <Karen Perez MD - Last Filed: 02/01/21 16:00> Care Plan Goals: Transfer to tertiary care facility for treatment of NSTEMI Resolution of chest pain and symptoms of NSTEMI <Steph Alva NP - Last Filed: 02/01/21 14:54> Health Concerns: Non ST elevation myocardial infarction <Steph Alva NP - Last Filed: 02/01/21 14:54> Plan of Treatment: Transfer to tertiary care facility for treatment of NSTEMI <Steph Alva NP - Last Filed: 02/01/21 14:54> Assessment: See Discharge summary <Steph Alva NP - Last Filed: 02/01/21 14:54> Discharge Date/Time: 02/01/21 12:15 <Steph Alva NP - Last Filed: 02/01/21 14:54>
--- NOTE | 2021-02-01 12:31 | MHC.CM.PN ---
Acute transfer per MD order.
[2021-02-02 03:23] LABS: Estimated Average Glucose 140 mg/dL; Hemoglobin A1c % 6.5 %
== END 2021-02-01 12:15 | disposition short-term general hospital (02) | DRG 190 ==
LOC: HO.ED 13:11 → HO.EDOVER 15:54 → HO.S3 02-01 12:09
PROVIDERS: Hospitalist; Internal Medicine Cardiovascular Disease; Nurse Practitioner Acute Care; Admitting Provider Hospitalist; Emergency Provider Emergency Medicine; Visit Provider Hospitalist
DX: I21.4 Non-ST elevation (NSTEMI) myocardial infarction (principal); I10 Essential (primary) hypertension; R73.03 Prediabetes; E66.9 Obesity, unspecified; Z20.822 Contact with and (suspected) exposure to COVID-19; Z68.37 Body mass index [BMI] 37.0-37.9, adult; Z79.899 Other long term (current) drug therapy
CPT/HCPCS: 36415; 71045; 80048; 80061; 80076; 80307; 83036; 83690; 83735; 84484; 85025; 85610; 85652; 85730; 87635; 93005; 96374; 96375; 99285; J2270; J2405; J3010

== ENCOUNTER → 2021-02-16 15:38 | Outpatient (BNVA) | payer BC, SELFPAY | PROVIDERS: Visit Provider Internal Medicine Cardiovascular Disease ==

== ENCOUNTER → 2021-07-30 15:36 | Outpatient (BNVA) | payer BC, SELFPAY | PROVIDERS: PCP Internal Medicine; Visit Provider Internal Medicine Cardiovascular Disease ==

== ENCOUNTER 2021-10-05 14:20 | Emergency (ER) | payer BC, SELFPAY ==
--- NOTE | ~2021-10-05 | XR_ITS ---
EXAMINATION: XR chest 2V CLINICAL INFORMATION: Reason for Exam Chest numbness COMPARISON: Prior chest x-ray 01/31/2021. TECHNIQUE: XR chest 2V Lungs and Sherly: Both lungs are clear. Pleura: Normal. Costophrenic angles are sharp. No pneumothorax. Heart: The heart is normal in size. Mediastinum: The mediastinum is within normal limits.. Bones: Skeletal structures included are normal for patient's age. XR/XR chest 2V IMPRESSION: Normal chest x-ray.
[2021-10-05 16:15] VITALS: BP 145/75; PULSE 64; RESP 18; TEMP 37.1; O2SAT 97; BMI 36.5
--- NOTE | 2021-10-05 16:15 | ECG_ITS ---
Test Reason : chest pain Blood Pressure : / mmHG Vent. Rate : 059 BPM Atrial Rate : 059 BPM P-R Int : 156 ms QRS Dur : 096 ms QT Int : 440 ms P-R-T Axes : 049 034 180 degrees QTc Int : [address] depression, T inversion in lateral/anterolateral, some inferior; cannot exclude ischemia Abnormal ECG When compared with ECG of 01-FEB-2021 04:40, No significant changes seen Referred By: Sarah Roman Electronically Signed By:CHRISTEN GRANDE
--- NOTE | 2021-10-05 16:16 | ED_ITS ---
HPI - Chest Pain General Chief Complaint: Chest Pain Stated Complaint: chest pain Time Seen by Provider: 10/05/21 16:15 Related Data Home Medications Medication Instructions Recorded Confirmed aspirin 81 mg tablet,delayed 81 mg PO DAILY 02/16/21 07/30/21 release propranolol 80 mg capsule,24 80 mg PO DAILY 02/17/21 07/30/21 hr,extended release Previous Rx's Medication Instructions Recorded atorvastatin 80 mg tablet 80 mg PO BEDTIME #90 tab 07/30/21 clopidogrel 75 mg tablet 75 mg PO DAILY 90 Days #90 tab 09/29/21 Allergies Allergy/AdvReac Type Severity Reaction Status Date / Time No Known Allergies Allergy Verified 07/30/21 15:42 [No Known Allergies*] [facility] Past Medical History Medical History (Updated 10/05/21 @ 21:33 by Aamir Murray MD) HTN (hypertension) Surgical History (Updated 07/30/21 @ 15:45 by JEANETTE Montemayor) History of cardiac cath Family History Family History (Updated 07/30/21 @ 15:45 by JEANETTE Montemayor) Mother Colon cancer Father Heart disease Diabetes HTN (hypertension) Brother Diabetes HTN (hypertension) Social History Social History (Updated 07/30/21 @ 15:45 by JEANETTE Montemayor) Alcohol intake: never Patient Tobacco Use Status: Never used Tobacco Physical Exam Vital Signs: Vital Signs: Last Vital Signs Temp 98.2 F 10/05/21 19:58 Pulse 59 10/05/21 22:00 Resp 18 10/05/21 22:00 BP 110/65 10/05/21 22:00 Pulse Ox 97 10/05/21 22:00 BMI result Body Mass Index 36.5 Course Course Course Narrative: 16:15pm - 41-year-old reports he has had an CT with stent placement on 01/31/2021 p resenting to the ED with complaints of 1 week of persistent midsternal chest numbness sensation with associated shortness of breath when he was carrying some items. Reports the chest pain is improved while he has been here in the ER. Denies any other symptoms related to this. Is currently on Plavix and take his medication as prescribed. On exam patient is alert oriented x3. Not in any acute distress. Vital signs are stable within normal limits. No focal neuro deficits are noted. Therefore at this time patient will be sent back to the waiting room for further evaluation treatment in the main ED at this time an EKG, chest x-ray and labs ordered. MDM - Chest Pain Lab Data Result diagrams: 10/05/21 19:42 10/05/21 19:42 Labs: Lab Results 10/05/21 10/05/21 10/05/21 Range/Units 19:42 19:42 19:42 WBC 8.6 (4.8-10.8) X10*3/uL RBC 5.64 (4.60-5.80) X10*6/uL Hgb 15.8 (14.0-18.0) g/dl Hct 47.5 (42.0-52.0) % MCV 84.2 (80.0-98.0) fL MCH 28.0 (27.0-33.0) pg MCHC 33.3 (31.0-36.0) g/dl RDW 12.8 (11.0-16.0) % Plt Count 255 (160-400) X10*3/uL MPV 9.2 L (9.4-12.4) fL Immature Gran % (Auto) 0.1 (0.0-0.4) % Neut % (Auto) 43.0 L (45-73) % Lymph % (Auto) 45.8 H (20-40) % [place] % (Auto) 8.1 (2-11) % Eos % (Auto) 2.0 (0-4) % Baso % (Auto) 1.0 (0-2) % Lymph # (Auto) 4.0 (1.2-4.9) X10*3/uL [place] # (Auto) 0.7 (0.1-1.2) X10*3/uL Eos # (Auto) 0.2 (0.0-0.4) X10*3/uL Baso # (Auto) 0.1 (0.0-0.2) X10*3/uL Abs Immat Gran (auto) 0.01 (0.00-0.03) X10*3/uL Absolute Neuts (auto) 3.7 (2.0-8.3) x10*3/uL Absolute Nucleated RBC 0.000 (0.0-0.012) X10*3/uL Nucleated RBC % (auto) 0.0 (0.0-0.2) /100WBC PT 12.7 (9.9-13.0) SEC INR 1.1 (0.9-1.1) Sodium 141 (135-145) mmol/L Potassium 4.3 (3.3-5.1) mmol/L Chloride 107 (96-108) mmol/L Carbon Dioxide 30 H (22-29) mmol/L Anion Gap 8 L (12-20) BUN 15 (9-16) mg/dL Creatinine 0.88 (0.5-1.4) mg/dL Estim Creat Clear Calc 132.1 Estimated GFR > 60 Random Glucose 106 (60-115) mg/dL Calcium 9.5 (8.4-10.2) mg/dL Magnesium 1.9 (1.6-2.6) mg/dL Total Bilirubin 0.5 (0.0-1.0) mg/dL AST 21 D (5-37) U/L ALT 40 (0-40) U/L Alkaline Phosphatase 133 H (39-117) U/L Total Creatine Kinase 217 H (38-174) U/L Troponin I High Sens (<3.5-35.0) ng/L B-Natriuretic Peptide (<100) pg/mL Total Protein 6.6 (6.5-8.0) g/dL Albumin 4.0 (3.5-5.0) g/dL Urine Color Urine Appearance Urine pH (5.0-8.0) Ur Specific [place] (1.005-1.025) Urine Protein (NEG-TRACE) MG/DL Urine Glucose (UA) (NEG) MG/DL Urine Ketones (NEG) MG/DL Urine Blood (NEG) Urine Nitrite (NEG) Ur Leukocyte Esterase (NEG) COVID-19 (YUNG) (Negative) COVID-19 Clin Com 10/05/21 10/05/21 10/05/21 Range/Units 19:42 19:42 20:06 WBC (4.8-10.8) X10*3/uL RBC (4.60-5.80) X10*6/uL Hgb (14.0-18.0) g/dl Hct (42.0-52.0) % MCV (80.0-98.0) fL MCH (27.0-33.0) pg MCHC (31.0-36.0) g/dl RDW (11.0-16.0) % Plt Count (160-400) X10*3/uL MPV (9.4-12.4) fL Immature Gran % (Auto) (0.0-0.4) % Neut % (Auto) (45-73) % Lymph % (Auto) (20-40) % [place] % (Auto) (2-11) % Eos % (Auto) (0-4) % Baso % (Auto) (0-2) % Lymph # (Auto) (1.2-4.9) X10*3/uL [place] # (Auto) (0.1-1.2) X10*3/uL Eos # (Auto) (0.0-0.4) X10*3/uL Baso # (Auto) (0.0-0.2) X10*3/uL Abs Immat Gran (auto) (0.00-0.03) X10*3/uL Absolute Neuts (auto) (2.0-8.3) x10*3/uL Absolute Nucleated RBC (0.0-0.012) X10*3/uL Nucleated RBC % (auto) (0.0-0.2) /100WBC PT (9.9-13.0) SEC INR (0.9-1.1) Sodium (135-145) mmol/L Potassium (3.3-5.1) mmol/L Chloride (96-108) mmol/L Carbon Dioxide (22-29) mmol/L Anion Gap (12-20) BUN (9-16) mg/dL Creatinine (0.5-1.4) mg/dL Estim Creat Clear Calc Estimated GFR Random Glucose (60-115) mg/dL Calcium (8.4-10.2) mg/dL Magnesium (1.6-2.6) mg/dL Total Bilirubin (0.0-1.0) mg/dL AST (5-37) U/L ALT (0-40) U/L Alkaline Phosphatase (39-117) U/L Total Creatine Kinase (38-174) U/L Troponin I High Sens 8.5 (<3.5-35.0) ng/L B-Natriuretic Peptide 63 (<100) pg/mL Total Protein (6.5-8.0) g/dL Albumin (3.5-5.0) g/dL Urine Color YELLOW Urine Appearance CLEAR Urine pH 6.0 (5.0-8.0) Ur Specific [place] 1.020 (1.005-1.025) Urine Protein NEG (NEG-TRACE) MG/DL Urine Glucose (UA) NEG (NEG) MG/DL Urine Ketones NEG (NEG) MG/DL Urine Blood NEG (NEG) Urine Nitrite NEG (NEG) Ur Leukocyte Esterase NEG (NEG) COVID-19 (YUNG) Negative (Negative) COVID-19 Clin Com See Note 10/05/21 Range/Units 21:39 WBC (4.8-10.8) X10*3/uL RBC (4.60-5.80) X10*6/uL Hgb (14.0-18.0) g/dl Hct (42.0-52.0) % MCV (80.0-98.0) fL MCH (27.0-33.0) pg MCHC (31.0-36.0) g/dl RDW (11.0-16.0) % Plt Count (160-400) X10*3/uL MPV (9.4-12.4) fL Immature Gran % (Auto) (0.0-0.4) % Neut % (Auto) (45-73) % Lymph % (Auto) (20-40) % [place] % (Auto) (2-11) % Eos % (Auto) (0-4) % Baso % (Auto) (0-2) % Lymph # (Auto) (1.2-4.9) X10*3/uL [place] # (Auto) (0.1-1.2) X10*3/uL Eos # (Auto) (0.0-0.4) X10*3/uL Baso # (Auto) (0.0-0.2) X10*3/uL Abs Immat Gran (auto) (0.00-0.03) X10*3/uL Absolute Neuts (auto) (2.0-8.3) x10*3/uL Absolute Nucleated RBC (0.0-0.012) X10*3/uL Nucleated RBC % (auto) (0.0-0.2) /100WBC PT (9.9-13.0) SEC INR (0.9-1.1) Sodium (135-145) mmol/L Potassium (3.3-5.1) mmol/L Chloride (96-108) mmol/L Carbon Dioxide (22-29) mmol/L Anion Gap (12-20) BUN (9-16) mg/dL Creatinine (0.5-1.4) mg/dL Estim Creat Clear Calc Estimated GFR Random Glucose (60-115) mg/dL Calcium (8.4-10.2) mg/dL Magnesium (1.6-2.6) mg/dL Total Bilirubin (0.0-1.0) mg/dL AST (5-37) U/L ALT (0-40) U/L Alkaline Phosphatase (39-117) U/L Total Creatine Kinase (38-174) U/L Troponin I High Sens 9.0 (<3.5-35.0) ng/L B-Natriuretic Peptide (<100) pg/mL Total Protein (6.5-8.0) g/dL Albumin (3.5-5.0) g/dL Urine Color Urine Appearance Urine pH (5.0-8.0) Ur Specific [place] (1.005-1.025) Urine Protein (NEG-TRACE) MG/DL Urine Glucose (UA) (NEG) MG/DL Urine Ketones (NEG) MG/DL Urine Blood (NEG) Urine Nitrite (NEG) Ur Leukocyte Esterase (NEG) COVID-19 ([facility]UNG) (Negative) COVID-19 Clin Com Discharge Plan Discharge Clinical Impression: Chest pain Qualifiers: Chest pain type: unspecified Qualified Code(s): R07.9 - Chest pain, unspecified Patient Disposition: Home, Self-Care Instructions: Chest Pain (ED) Additional Instructions: Your workup in the emergency department was reassuring. Be sure to continue to take all of your medications. Follow-up with your machine assistant as we discussed. Call the office tomorrow to arrange a follow-up appointment Prescriptions: No Action clopidogrel 75 mg tablet 75 mg PO DAILY 90 Days Qty: 90 RF: 3 atorvastatin 80 mg tablet 80 mg PO BEDTIME Qty: 90 RF: 3 aspirin 81 mg tablet,delayed release (DR/EC) 81 mg PO DAILY RF: 0 propranolol 80 mg capsule,extended release 24 hr 80 mg PO DAILY RF: 0 Referrals: Carlito Frankel MD [Physician] - 2 days Interventions: ED Discharge Assessment Last Done: 10/05/21 22:58 Discharge Date/Time: 10/05/21 22:59
--- NOTE | 2021-10-05 17:37 | ED_ITS ---
HPI - Chest Pain General Chief Complaint: Chest Pain Stated Complaint: chest pain Time Seen by Provider: 10/05/21 16:15 Source: patient and old records reviewed History of Present Illness HPI narrative: Patient has a history of NSTEMI in January of this year. He presents today with intermittent chest squeezing over the past the week or so. He states it at times last 1-2 hours. It then resolved on its own. It will does not seem to be precipitated by exertion. He states he did get tired walking upstairs yesterday but today had no difficulty with this. The discomfort he is having today states feels like very light pressure. It is not a significant discomfort. It is different than it when he had his non ST elevation myocardial infarction which radiated to his left arm. That was also a constant discomfort. He saw his clerk to justice approximately 2 months ago and had a normal evaluation at that time. He denies any recent changes to medications, diet, or activity. He has not had any symptoms like this since his myocardial infarction until this last week. No recent cough fevers or chills. He is not vaccinated against COVID He has been compliant with his medications including aspirin and Plavix which he took this morning Related Data Home Medications Medication Instructions Recorded Confirmed aspirin 81 mg tablet,delayed 81 mg PO DAILY 02/16/21 07/30/21 release propranolol 80 mg capsule,24 80 mg PO DAILY 02/17/21 07/30/21 hr,extended release Previous Rx's Medication Instructions Recorded atorvastatin 80 mg tablet 80 mg PO BEDTIME #90 tab 07/30/21 clopidogrel 75 mg tablet 75 mg PO DAILY 90 Days #90 tab 09/29/21 Allergies Allergy/AdvReac Type Severity Reaction Status Date / Time No Known Allergies Allergy Verified 07/30/21 15:42 [No Known Allergies*] Review of Systems Constitutional: Constitutional: Denies fatigue and Denies fever(s) Cardiovascular: Comments: Normal chest pain as described Respiratory: Comments: Dyspnea on exertion yesterday, but none today Gastrointestinal: Comments: No nausea vomiting Musculoskeletal: Comments: No leg swelling Integumentary/Breasts: Comments: No rash Neurologic: Comments: No weakness Psychiatric: Comments: No anxiety Endocrine: Endocrine: Denies fatigue [facility] Past Medical History Medical History (Updated 10/05/21 @ 21:33 by Aamir Murray MD) HTN (hypertension) Surgical History (Updated 07/30/21 @ 15:45 by JEANETTE Montemayor) History of cardiac cath Family History Family History (Updated 07/30/21 @ 15:45 by JEANETTE Montemayor) Mother Colon cancer Father Heart disease Diabetes HTN (hypertension) Brother Diabetes HTN (hypertension) Social History Social History (Updated 07/30/21 @ 15:45 by JEANETTE Montemayor) Alcohol intake: never Patient Tobacco Use Status: Never used Tobacco Physical Exam Vital Signs: Vital Signs: Last Vital Signs Temp 98.2 F 10/05/21 19:58 Pulse 59 10/05/21 22:00 Resp 18 10/05/21 22:00 BP 110/65 10/05/21 22:00 Pulse Ox 97 10/05/21 22:00 BMI result Body Mass Index 36.5 Const: Other: No acute distress Chest: Other: Chest wall is nontender to palpation. Symptoms not reproducible Resp: Other: Clear and equal bilaterally without wheezes rales or rhonchi Cardio: Other: Regular rate and rhythm without murmurs rubs or gallops GI: Other: Soft nontender nondistended Skin: Other: Warm pink and dry without rash or diaphoresis Neuro: Other: Alert and oriented. Ambulatory without difficulty Course Course Course Narrative: Patient with known coronary artery disease with prior stent secondary to non ST elevation myocardial infarction with intermittent chest discomfort. Acute coronary syndrome Noncardiac chest pain Reflux EKG shows sinus rhythm with marked T-wave depressions which are not new. No obvious ST elevation or depression. Will initiate remainder of workup including troponins. 9:31 p.m.. Case discussed with covering clerk to justice Dr. Frankel. Discussed EKG as well as troponin which is 8.5. Patient is comfortable at the moment. Will repeat his troponin is still low, he will be discharged home with follow-up in the cardiology office. MDM - Chest Pain Lab Data Result diagrams: 10/05/21 19:42 10/05/21 19:42 Labs: Lab Results 10/05/21 10/05/21 10/05/21 Range/Units 19:42 19:42 19:42 WBC 8.6 (4.8-10.8) X10*3/uL RBC 5.64 (4.60-5.80) X10*6/uL Hgb 15.8 (14.0-18.0) g/dl Hct 47.5 (42.0-52.0) % MCV 84.2 (80.0-98.0) fL MCH 28.0 (27.0-33.0) pg MCHC 33.3 (31.0-36.0) g/dl RDW 12.8 (11.0-16.0) % Plt Count 255 (160-400) X10*3/uL MPV 9.2 L (9.4-12.4) fL Immature Gran % (Auto) 0.1 (0.0-0.4) % Neut % (Auto) 43.0 L (45-73) % Lymph % (Auto) 45.8 H (20-40) % [place] % (Auto) 8.1 (2-11) % Eos % (Auto) 2.0 (0-4) % Baso % (Auto) 1.0 (0-2) % Lymph # (Auto) 4.0 (1.2-4.9) X10*3/uL [place] # (Auto) 0.7 (0.1-1.2) X10*3/uL Eos # (Auto) 0.2 (0.0-0.4) X10*3/uL Baso # (Auto) 0.1 (0.0-0.2) X10*3/uL Abs Immat Gran (auto) 0.01 (0.00-0.03) X10*3/uL Absolute Neuts (auto) 3.7 (2.0-8.3) x10*3/uL Absolute Nucleated RBC 0.000 (0.0-0.012) X10*3/uL Nucleated RBC % (auto) 0.0 (0.0-0.2) /100WBC PT 12.7 (9.9-13.0) SEC INR 1.1 (0.9-1.1) Sodium 141 (135-145) mmol/L Potassium 4.3 (3.3-5.1) mmol/L Chloride 107 (96-108) mmol/L Carbon Dioxide 30 H (22-29) mmol/L Anion Gap 8 L (12-20) BUN 15 (9-16) mg/dL Creatinine 0.88 (0.5-1.4) mg/dL Estim Creat Clear Calc 132.1 Estimated GFR > 60 Random Glucose 106 (60-115) mg/dL Calcium 9.5 (8.4-10.2) mg/dL Magnesium 1.9 (1.6-2.6) mg/dL Total Bilirubin 0.5 (0.0-1.0) mg/dL AST 21 D (5-37) U/L ALT 40 (0-40) U/L Alkaline Phosphatase 133 H (39-117) U/L Total Creatine Kinase 217 H (38-174) U/L Troponin I High Sens (<3.5-35.0) ng/L B-Natriuretic Peptide (<100) pg/mL Total Protein 6.6 (6.5-8.0) g/dL Albumin 4.0 (3.5-5.0) g/dL Urine Color Urine Appearance Urine pH (5.0-8.0) Ur Specific [place] (1.005-1.025) Urine Protein (NEG-TRACE) MG/DL Urine Glucose (UA) (NEG) MG/DL Urine Ketones (NEG) MG/DL Urine Blood (NEG) Urine Nitrite (NEG) Ur Leukocyte Esterase (NEG) COVID-19 (YUNG) (Negative) COVID-19 Clin Com 10/05/21 10/05/21 10/05/21 Range/Units 19:42 19:42 20:06 WBC (4.8-10.8) X10*3/uL RBC (4.60-5.80) X10*6/uL Hgb (14.0-18.0) g/dl Hct (42.0-52.0) % MCV (80.0-98.0) fL MCH (27.0-33.0) pg MCHC (31.0-36.0) g/dl RDW (11.0-16.0) % Plt Count (160-400) X10*3/uL MPV (9.4-12.4) fL Immature Gran % (Auto) (0.0-0.4) % Neut % (Auto) (45-73) % Lymph % (Auto) (20-40) % [place] % (Auto) (2-11) % Eos % (Auto) (0-4) % Baso % (Auto) (0-2) % Lymph # (Auto) (1.2-4.9) X10*3/uL [place] # (Auto) (0.1-1.2) X10*3/uL Eos # (Auto) (0.0-0.4) X10*3/uL Baso # (Auto) (0.0-0.2) X10*3/uL Abs Immat Gran (auto) (0.00-0.03) X10*3/uL Absolute Neuts (auto) (2.0-8.3) x10*3/uL Absolute Nucleated RBC (0.0-0.012) X10*3/uL Nucleated RBC % (auto) (0.0-0.2) /100WBC PT (9.9-13.0) SEC INR (0.9-1.1) Sodium (135-145) mmol/L Potassium (3.3-5.1) mmol/L Chloride (96-108) mmol/L Carbon Dioxide (22-29) mmol/L Anion Gap (12-20) BUN (9-16) mg/dL Creatinine (0.5-1.4) mg/dL Estim Creat Clear Calc Estimated GFR Random Glucose (60-115) mg/dL Calcium (8.4-10.2) mg/dL Magnesium (1.6-2.6) mg/dL Total Bilirubin (0.0-1.0) mg/dL AST (5-37) U/L ALT (0-40) U/L Alkaline Phosphatase (39-117) U/L Total Creatine Kinase (38-174) U/L Troponin I High Sens 8.5 (<3.5-35.0) ng/L B-Natriuretic Peptide 63 (<100) pg/mL Total Protein (6.5-8.0) g/dL Albumin (3.5-5.0) g/dL Urine Color YELLOW Urine Appearance CLEAR Urine pH 6.0 (5.0-8.0) Ur Specific [place] 1.020 (1.005-1.025) Urine Protein NEG (NEG-TRACE) MG/DL Urine Glucose (UA) NEG (NEG) MG/DL Urine Ketones NEG (NEG) MG/DL Urine Blood NEG (NEG) Urine Nitrite NEG (NEG) Ur Leukocyte Esterase NEG (NEG) COVID-19 (YUNG) Negative (Negative) COVID-19 Clin Com See Note 10/05/21 Range/Units 21:39 WBC (4.8-10.8) X10*3/uL RBC (4.60-5.80) X10*6/uL Hgb (14.0-18.0) g/dl Hct (42.0-52.0) % MCV (80.0-98.0) fL MCH (27.0-33.0) pg MCHC (31.0-36.0) g/dl RDW (11.0-16.0) % Plt Count (160-400) X10*3/uL MPV (9.4-12.4) fL Immature Gran % (Auto) (0.0-0.4) % Neut % (Auto) (45-73) % Lymph % (Auto) (20-40) % [place] % (Auto) (2-11) % Eos % (Auto) (0-4) % Baso % (Auto) (0-2) % Lymph # (Auto) (1.2-4.9) X10*3/uL [place] # (Auto) (0.1-1.2) X10*3/uL Eos # (Auto) (0.0-0.4) X10*3/uL Baso # (Auto) (0.0-0.2) X10*3/uL Abs Immat Gran (auto) (0.00-0.03) X10*3/uL Absolute Neuts (auto) (2.0-8.3) x10*3/uL Absolute Nucleated RBC (0.0-0.012) X10*3/uL Nucleated RBC % (auto) (0.0-0.2) /100WBC PT (9.9-13.0) SEC INR (0.9-1.1) Sodium (135-145) mmol/L Potassium (3.3-5.1) mmol/L Chloride (96-108) mmol/L Carbon Dioxide (22-29) mmol/L Anion Gap (12-20) BUN (9-16) mg/dL Creatinine (0.5-1.4) mg/dL Estim Creat Clear Calc Estimated GFR Random Glucose (60-115) mg/dL Calcium (8.4-10.2) mg/dL Magnesium (1.6-2.6) mg/dL Total Bilirubin (0.0-1.0) mg/dL AST (5-37) U/L ALT (0-40) U/L Alkaline Phosphatase (39-117) U/L Total Creatine Kinase (38-174) U/L Troponin I High Sens 9.0 (<3.5-35.0) ng/L B-Natriuretic Peptide (<100) pg/mL Total Protein (6.5-8.0) g/dL Albumin (3.5-5.0) g/dL Urine Color Urine Appearance Urine pH (5.0-8.0) Ur Specific [place] (1.005-1.025) Urine Protein (NEG-TRACE) MG/DL Urine Glucose (UA) (NEG) MG/DL Urine Ketones (NEG) MG/DL Urine Blood (NEG) Urine Nitrite (NEG) Ur Leukocyte Esterase (NEG) COVID-19 (YUNG) (Negative) COVID-19 Clin Com Discharge Plan Discharge Clinical Impression: Chest pain Qualifiers: Chest pain type: unspecified Qualified Code(s): R07.9 - Chest pain, unspecified Patient Disposition: Home, Self-Care Instructions: Chest Pain (ED) Additional Instructions: Your workup in the emergency department was reassuring. Be sure to continue to take all of your medications. Follow-up with your clerk to justice as we discussed. Call the office tomorrow to arrange a follow-up appointment Prescriptions: No Action clopidogrel 75 mg tablet 75 mg PO DAILY 90 Days Qty: 90 RF: 3 atorvastatin 80 mg tablet 80 mg PO BEDTIME Qty: 90 RF: 3 aspirin 81 mg tablet,delayed release (DR/EC) 81 mg PO DAILY RF: 0 propranolol 80 mg capsule,extended release 24 hr 80 mg PO DAILY RF: 0 Referrals: Carlito Frankel MD [Physician] - 2 days Interventions: ED Discharge Assessment Last Done: 10/05/21 22:58 Discharge Date/Time: 10/05/21 22:59
[2021-10-05 19:56] LABS: Basophils Absolute Auto 0.1 X10*3/uL (0.0-0.2); Eosinophils Absolute Auto 0.2 X10*3/uL (0.0-0.4); Hematocrit 47.5 % (42.0-52.0); Hemoglobin 15.8 g/dl (14.0-18.0); Imm Gran Abs Auto 0.01 X10*3/uL (0.00-0.03); Imm Gran Pct Auto 0.1 % (0.0-0.4); Lymphocytes Percent Auto 45.8 % (20-40); MANUAL DIFF FLAG NO; Mean Corpuscular HGB Conc 33.3 g/dl (31.0-36.0); Mean Corpuscular Volume 84.2 fL (80.0-98.0); Mean Platelet Volume 9.2 fL (9.4-12.4); Monocytes Absolute Auto 0.7 X10*3/uL (0.1-1.2); Monocytes Percent Auto 8.1 % (2-11); Neutrophils Absolute Auto 3.7 x10*3/uL (2.0-8.3); Platelet Count 255 X10*3/uL (160-400); Red Blood Count 5.64 X10*6/uL (4.60-5.80); Red Cell Distribution Width 12.8 % (11.0-16.0); White Blood Count 8.6 X10*3/uL (4.8-10.8)
[2021-10-05 19:58] VITALS: BP 134/82; PULSE 62; RESP 16; TEMP 36.8; O2SAT 97
[2021-10-05 20:00] LABS: INTERNATIONAL NORM RATIO 1.1 (0.9-1.1); Prothrombin Time 12.7 SEC (9.9-13.0)
[2021-10-05 20:08] LABS: COVID-19 Test Negative (Negative); IDNOW Serial# 9DD0AD1C
[2021-10-05 20:11] LABS: Appearance Urine CLEAR; Color Urine YELLOW; Glucose Urine UA NEG (NEG); Leukocyte Esterase Urine NEG (NEG); Nitrite Urine NEG (NEG); Urine Blood NEG (NEG); Urine Ketones NEG (NEG); Urine Protein NEG (NEG-TRACE)
[2021-10-05 20:12] LABS: Alanine Aminotransferase 40 U/L (0-40); Alkaline Phosphatase 133 U/L (39-117); Anion Gap 8 (12-20); Aspartate Amino Transferase 21 U/L (5-37); Bilirubin Total 0.5 mg/dL (0.0-1.0); Blood Urea Nitrogen 15 mg/dL (9-16); Calcium 9.5 mg/dL (8.4-10.2); Carbon Dioxide 30 mmol/L (22-29); Chloride 107 mmol/L (96-108); Creatinine Clr Calc Pharmacy 132.1; Estimated Glomerular Filt Rate > 60; Glucose Random 106 mg/dL (60-115); Magnesium 1.9 mg/dL (1.6-2.6); Potassium 4.3 mmol/L (3.3-5.1); Sodium 141 mmol/L (135-145); Total Protein 6.6 g/dL (6.5-8.0)
[2021-10-05 20:16] LABS: B Type Natriuretic Peptide 63 pg/mL (<100); Troponin-I High Sensitivity 8.5 ng/L (<3.5-35.0)
[2021-10-05 22:00] VITALS: BP 110/65; PULSE 59; RESP 18; O2SAT 97
== END 2021-10-05 22:59 | disposition home or self-care (01) ==
PROVIDERS: Physician Assistant Medical; Emergency Provider Emergency Medicine; PCP Internal Medicine
DX: R07.9 Chest pain, unspecified (principal); Z20.822 Contact with and (suspected) exposure to COVID-19; R06.02 Shortness of breath; I10 Essential (primary) hypertension; I25.2 Old myocardial infarction; Z79.82 Long term (current) use of aspirin; Z79.02 Long term (current) use of antithrombotics/antiplatelets
CPT/HCPCS: 36415; 71046; 80053; 81003; 82550; 83735; 83880; 84484; 85025; 85610; 87635; 93005; 99283; 99284

== ENCOUNTER → 2021-10-07 13:06 | Outpatient (BNVA) | payer BC, SELFPAY | PROVIDERS: PCP Internal Medicine; Visit Provider Nurse Practitioner Family ==

== ENCOUNTER → 2021-10-14 07:32 | Outpatient (REF) | payer BC, SELFPAY ==
--- NOTE | 2021-10-14 07:36 | CA_ITS ---
Transthoracic Echocardiogram Patient (Last, First, Middle): Ashwin Alexandre, Gender: Male Date of : 1980 Age: 41 Procedure Date: 10/14/2021 Procedure Type: Transthoracic Echocardiogram Location: OP Height: 172.72 cm Weight: 108.86 kg BSA: 2.21 m2 Heart Rate: bpm BP: 110 / 60 mmHg Cnc Operator: DEION Referring MD: Barbara Young LAUNDRY PRICING CLERK-C Symptoms: R07.9 - Chest pain, unspecified Study Quality: Fair/Contrast Conclusions: - Normal left ventricular size, thickness, systolic function, and wall motion. - Normal right ventricular cavity size and systolic function. - No significant valvular or pericardial pathology. Findings Procedure Information Contrast agent, definity, is being given per protocol without apparent complications. Left Ventricle Normal left ventricular size, thickness, systolic function, and wall motion. The visually estimated ejection fraction is between 65-70%. Diastolic function is normal for age. Right Ventricle Normal right ventricular cavity size and systolic function. Atria Both atria are normal in size. Aortic Valve Normal aortic valve structure and function. There is no aortic valve stenosis. There is no aortic valve regurgitation. Mitral Valve Normal mitral valve structure and function. There is trace mitral valve regurgitation. There is no mitral valve stenosis. Pulmonic Valve Normal pulmonic valve structure and function. There is no pulmonic valve regurgitation. Tricuspid Valve Normal tricuspid valve structure. There is trace tricuspid valve regurgitation. Normal right atrial pressure. There is no evidence of pulmonary hypertension. Great Vessels All visible segments of the aorta are normal in size. The visualized portions of the pulmonary artery and branches are normal. Venous The inferior vena cava is normal in size and collapses greater than 50% with inspiration. Pericardium/Pleural There is no evidence of pericardial effusion. Prior Study Comparison No prior study available for comparison. Measurements 2D Linear Measurements IVSd: 1.04 0.6-0.9/0.6-1.0 cm LVIDd: 4.86 3.9-5.3/4.2-5.9 cm LVIDd Index: 2.20 2.4-3.2/2.2-3.1 cm/m2 LVIDs: 3.24 2.0-3.6 cm LVPWd: 1.08 0.7-1.1 cm Ao Root: 3.20 2.1-3.5 cm LA Diam: 3.80 2.7-3.8/3.0-4.0 cm LAIDs Index: 1.72 1.5-2.3 cm/m2 LV Mass: 234.29 67-162/88-224 g LV Mass Index: 106.01 43-95/49-115 g/m2 LVOT Diam: 2.10 3.0+(-)1.3 cm 2D Systolic Function EF 4C: 60.90 >55% EF 2C: 64.90 >55% EF BiP: 62.10 >55% Mitral Valve MV Pk E: 0.65 MV PK A: 0.47 MV Decel Time: 207.00 E/A: 1.40 E'Lateral: 7.29 E'Medial: 7.07 E/E' Med: 9.20 E/E' Lat: 8.90 PHT: 61.00 MVA PHT: 3.61 Decel Zapata: 3.14 Aortic Valve AoV Pk Trae: 1.32 AoV Mn Trae: 0.88 AoV VTI: 0.25 AoV Pk Grad: 7.00 Aov Mn Grad: 4.00 CAROLYN Cont.VTI: 3.01 LVOT LVOT Pk Trae: 1.12 LVOT Mn Trae: 0.73 LVOT VTI: 0.22 LVOT Pk Grad: 5.00 LVOT Mn Grad: 2.00 LVOT Diam: 2.10 LVOT Area: 3.46 Diastolic Function MV Pk E: 0.65 MV Pk A: 0.47 E/A: 1.40 E'Medial: 7.07 E/E' Med: 9.20 E' Laterial: 7.29 E/E' Lat: 8.90 Right Ventricle TAPSE (mm): 2.23 TVS' Trae: 10.30 Tricuspid Valve TR Pk Trae: 2.33 TR Pk Grad: 22.00 RA Press: 3.00 RVSP: 25.00 Great Vessels Aorta Ao Root-2D: 3.20 2.0-3.7 cm Ao Asc: 3.00 2.1-3.4 cm Ao Arch: 3.00 Updated in Other Vendor System with Status of Final Jamey Felipe MD electronically signed on 10/14/2021 10:29:09 AM with status of Final
== END ==
LOC: HO.CARD 07:32
PROVIDERS: Visit Provider Nurse Practitioner Family
DX: R07.9 Chest pain, unspecified (principal)
CPT/HCPCS: 93306; Q9957

== ENCOUNTER → 2021-10-19 10:00 | Outpatient (REF) | payer BC, SELFPAY ==
--- NOTE | ~2021-10-19 | NM_ITS ---
Lexiscan Myocardial perfusion study Indication: Chest pain, assess for coronary disease and ischemia Technique: The patient was brought in for a Lexiscan perfusion study on 10/19/2021 and was injected 0.4 mg of Lexiscan intravenously. Within a minute of this injection 27 mCi of sestamibi was given intravenously. Images were obtained using the SPECT gamma camera interlaced with the gating device. Images were obtained in supine position. Resting perfusion study was performed on 11/16/2021. Patient was administered 27 mCi of sestamibi intravenously at rest. Images were then obtained in supine position. Total DLP 111mGy-cm. Images were processed with the software and compared side to side in short axis, horizontal long axis and vertical long axis views. Findings: Raw acquisition was reviewed. The stress perfusion study showed mildly diminished tracer uptake in the basal lateral wall. No significant change with CT attenuation correction. The gated study shows low normal LV systolic function with calculated LVEF of 52%. LV cavity is normal in size. The gated study shows mildly reduced thickening in the basal lateral wall. Resting study shows reduced tracer uptake in the basal part of inferior wall, adjacent inferior septum, inferolateral wall and lateral wall. There is also reduced uptake in the basal to mid anterior wall. With CT attenuation, there is overall, some improvement in tracer uptake. Gating at rest reveals ejection fraction of 54%. Possibly some hypokinesis in the basal inferior, inferolateral, lateral see. The findings are consistent with no clear reversible defects. Possible small basal lateral fixed defect. NM/NM cardiolite stress test Impression: 1. Myocardial perfusion imaging study is suboptimal. There was almost 1 month delay between stress and rest components (due to patient acquiring COVID). With this limitation, no clear ischemic findings. Possibly a small basal lateral fixed defect. Could also be artifactual. 2. Gated LVEF is 52% during stress and 54% during rest. 3. Transient ischemic dilatation not present. EKG component of the test reported separately.
--- NOTE | 2021-10-19 10:04 | CA_ITS ---
Acquisition Time: 2021-10-19 10:23:30 Total Exercise Time: 00:08:00 Test Indications: CP Medications: SEE CHART Protocol: MICHAEL Max HR: 120 BPM 67% of Pred: 179 BPM Max BP: 178/062 mmHG Max Work Load: 10.1 METS Exercise stress test with exercise with exercise 8 min of Michael protocol achieving 67% MPHR, without anginal symptoms, without arrythmia, with normotensive and blunted chronotropic response to exercise, with nondiagnostic EKG for ischemia due to baseline EKG abnormality. Treadmill placed in recovery and slowed to 1 MPH. Testing changed to a pharmacological stress test with Lexiscan injection, without anginal symptoms, without arrythmia, with nondiagnostic EKG for ischemia. Nuclear images pending. Test reviewed with Dr Renee. Referred By: Barbara Young Overread By: BARBARA YOUNG
== END ==
LOC: HO.CARD 10:00
PROVIDERS: Visit Provider Nurse Practitioner Family
DX: R07.9 Chest pain, unspecified (principal); I21.4 Non-ST elevation (NSTEMI) myocardial infarction; R94.31 Abnormal electrocardiogram [ECG] [EKG]
CPT/HCPCS: 78452; 93017; A9500; J0280; J2785

== ENCOUNTER → 2021-12-01 13:47 | Outpatient (BNVA) | payer BC, SELFPAY | PROVIDERS: PCP Internal Medicine; Visit Provider Nurse Practitioner Family ==

== ENCOUNTER → 2022-06-09 09:48 | Outpatient (BNVA) | payer BC, SELFPAY | PROVIDERS: PCP Internal Medicine; Visit Provider Internal Medicine Cardiovascular Disease | DX: I21.4 Non-ST elevation (NSTEMI) myocardial infarction (principal); I20.8 Other forms of angina pectoris; I10 Essential (primary) hypertension | CPT/HCPCS: 93005 ==

== ENCOUNTER → 2022-12-30 13:16 | Outpatient (BNVA) | payer BC, SELFPAY | PROVIDERS: PCP Internal Medicine; Visit Provider Nurse Practitioner Family | DX: Z13.89 Encounter for screening for other disorder (principal) ==

== ENCOUNTER 2023-01-01 10:46 | Outpatient (REF) | payer BC, SELFPAY ==
[2023-01-01 10:59] LABS: MANUAL DIFF FLAG NO
[2023-01-01 11:17] LABS: Basophils Absolute Auto 0.1 X10*3/uL (0.0-0.2); Basophils Percent Auto 0.9 % (0-2); Eosinophils Absolute Auto 0.1 X10*3/uL (0.0-0.4); Eosinophils Percent Auto 1.7 % (0-4); Hematocrit 46.9 % (42.0-52.0); Hemoglobin 15.7 g/dl (14.0-18.0); Imm Gran Abs Auto 0.04 X10*3/uL (0.00-0.03); Imm Gran Pct Auto 0.6 % (0.0-0.4); Lymphocytes Percent Auto 47.9 % (20-40); Mean Corpuscular HGB Conc 33.5 g/dl (31.0-36.0); Mean Corpuscular Hemoglobin 27.5 pg (27.0-33.0); Mean Corpuscular Volume 82.3 fL (80.0-98.0); Mean Platelet Volume 9.3 fL (9.4-12.4); Monocytes Absolute Auto 0.5 X10*3/uL (0.1-1.2); Monocytes Percent Auto 7.3 % (2-11); Neutrophils Absolute Auto 2.6 x10*3/uL (2.0-8.3); Neutrophils Percent Auto 41.6 % (45-73); Platelet Count 262 X10*3/uL (160-400); Red Cell Distribution Width 13.2 % (11.0-16.0); White Blood Count 6.3 X10*3/uL (4.8-10.8)
[2023-01-01 11:45] LABS: Anion Gap 11 (12-20); Blood Urea Nitrogen 16 mg/dL (9-16); Calcium 8.8 mg/dL (8.4-10.2); Carbon Dioxide 24 mmol/L (22-29); Chloride 109 mmol/L (96-108); Cholesterol 123 mg/dL; Estimated Glomerular Filt Rate > 60; Glucose Random 129 mg/dL (60-115); HDL Cholesterol 36 mg/dL; LDL Cholesterol Calculated 78 mg/dl; Potassium 4.1 mmol/L (3.3-5.1); Sodium 140 mmol/L (135-145); Triglycerides 47 mg/dL
== END 2023-01-01 10:47 | disposition home or self-care (01) ==
LOC: HO.LAB 10:46
PROVIDERS: Visit Provider Nurse Practitioner Family
DX: I10 Essential (primary) hypertension (principal); I25.10 Atherosclerotic heart disease of native coronary artery without angina pectoris
CPT/HCPCS: 36415; 80048; 80061; 85025

== ENCOUNTER 2023-06-27 15:51 | Outpatient (AMB) | payer BC, SELFPAY ==
--- NOTE | 2023-06-27 15:53 | MHC.OFFVIS ---
Intake Vital Signs 06/27/23 16:06 Height 5 ft 8 in Weight 246 lb BMI 37.4 BP 130/78 Blood Pressure Location Rt brachial Position Sitting Intake Visit Reasons: 6 mth f/up per dc Intake Note: Patient is present for follow up EKG was performed Todays blood pressure: 130/78 no complaints of chest pain or shortness of breath Allergies No Known Allergies [No Known Allergies*] Allergy (Verified 06/27/23 16:05) Medication List - Last Reconciled 06/27/23 by Jamey Felipe MD aspirin 81 mg PO DAILY atorvastatin 80 mg PO BEDTIME blood pressure monitor As directed clopidogrel 75 mg PO DAILY metformin ER 500 mg PO QPM propranolol ER 80 mg PO DAILY HPI HPI Comments History of Present Illness Details Pleasant 42-year-old gentleman here for follow-up. He was seen for chest pain and non ST-elevation [place] at [facility]. He was transferred to [facility] where cardiac catheterization showed occluded OM branch which was stented with drug-eluting stent. He has been on aspirin and Plavix. He has been tolerating medications without any side effects. No bleeding issues in particular. He was seen by Barbara in follow-up and was complaining of some chest discomfort. Underwent Lexiscan which did not show any significant abnormality. On follow-up his symptoms were improved. Today he returns for follow-up again. He has been doing well. Unfortunately had a significant injury to his left thigh with a saw at work. He underwent surgery and is in recovery and doing physiotherapy. He gets knee buckling when he is walking and fully with physiotherapy his muscles will get stronger and this problem will improve. He has anterolateral T-wave inversions as well as T-wave inversions in 1 2 aVL. These have been present on previous EKGs. He did not have significant left ventricular hypertrophy or apical hypertrophy on echocardiography. Overall he is doing well. He is having no significant symptoms. We discussed about aspirin and Plavix use after 1 year and that Plavix is optional for him. 06/27/23: He returns for follow-up. He has been doing well. No dyspnea or chest pain. Taking medication regularly. [facility] Medical History CAD (coronary artery disease) HTN (hypertension) Surgical History History of cardiac cath Family History Mother Colon cancer Father Heart disease Diabetes HTN (hypertension) Brother Diabetes HTN (hypertension) Social History Alcohol intake: never Patient Tobacco Use Status: Never used Tobacco Physical Exam Vital Signs: Last Vital Signs BP 130/78 06/27/23 16:06 BMI result Body Mass Index 37.4 GENERAL APPEARANCE: in no acute distress, pleasant. NECK: no carotid bruit, no jugular venous distention. SKIN: no suspicious lesions, warm and dry. HEART: no murmurs, regular rate and rhythm. LUNGS: clear to auscultation bilaterally. ABDOMEN: soft, nontender. EXTREMITIES: no edema. PERIPHERAL PULSES: equal. NEUROLOGIC: No gross deficits, AAO X 3 Office Procedures EKG Details: Sinus rhythm 60 beats per minute, normal axis, anterolateral T-wave inversions with ST depressions, T-wave inversions lead [address] depressions. Unchanged from before. QTC 448 milliseconds. [id number], Complete Assessment & Plan Assessment & Plan (1) Stable angina: Code(s): I20.8 - Other forms of angina pectoris Plan Pleasant 42 year gentleman is here for follow-up. He has stable angina currently and has been doing well. Taking medication regularly. Blood pressure control is good. His EKG has T-wave inversions and ST depressions in the anterolateral leads which sometimes are seen with apical hypertrophy. His previous echocardiography was normal in 2020. I have advised him to repeat echocardiogram to assess for any evidence of hypertrophic cardiomyopathy. He has been taking dual antiplatelet therapy long-term. I have advised him that he can take Plavix only and stop the aspirin at this stage. Thank you for allowing me to participate in the care of your patient. Please feel free to contact me if you have any questions. Orders: Orders CA echo transthoracic complete 06/27/23 R94.31 - Abnormal electrocardiogram [ECG] [EKG] Medications: Discontinued aspirin Discontinued Reason: Doctor's Order 81 mg PO DAILY 90 tabs 3RF I21.4 - Non-ST elevation (NSTEMI) myocardial infarction Coding Level of Care Code Est Pt Level 4 (01355) Diagnoses Stable angina I20.8 CPT Codes EKG - CPT: 53470-[id number], Complete ([id number])
[2023-06-27 16:06] VITALS: BP 130/78; BMI 37.4
== END 2023-06-27 16:14 | disposition home or self-care (01) ==
PROVIDERS: PCP Internal Medicine; Visit Provider Internal Medicine Cardiovascular Disease
DX: R94.31 Abnormal electrocardiogram [ECG] [EKG] (principal)
CPT/HCPCS: 93010; 99214

== ENCOUNTER → 2023-06-27 15:51 | Outpatient (BNVA) | payer BC, SELFPAY | PROVIDERS: PCP Internal Medicine; Visit Provider Internal Medicine Cardiovascular Disease | DX: I20.8 Other forms of angina pectoris (principal); I25.2 Old myocardial infarction; Z79.02 Long term (current) use of antithrombotics/antiplatelets; Z79.82 Long term (current) use of aspirin | CPT/HCPCS: 93005 ==

== ENCOUNTER → 2023-07-28 15:03 | Outpatient (REF) | payer BC, SELFPAY ==
--- NOTE | 2023-07-28 15:07 | CA_ITS ---
Transthoracic Echocardiogram Patient (Last, First, Middle): Ashwin Alexandre, Gender: Male Date of : 1980 Age: 42 Procedure Date: 07/28/2023 Procedure Type: Transthoracic Echocardiogram Location: OP Height: 172.72 cm Weight: 111.13 kg BSA: 2.23 m2 Heart Rate: bpm BP: 130 / 80 mmHg Student Recruiter: BILL Referring MD: Jamey Felipe MD Funeral Sales Manager: Jamey Felipe MD Symptoms: R94.31 - Abnormal electrocardiogram [ECG] [EKG] Study Quality: Adequate with contrast Conclusions: - Normal left ventricular cavity size. There is mildly increased left ventricular wall thickness. The left ventricular systolic function is hyperdynamic. The visually estimated ejection fraction is >70%. - There is normal right ventricular systolic function. - The left atrium is moderately dilated. - Cannot rule out apical hypertrophy. Findings Procedure Information Contrast agent, definity, is being given per protocol without apparent complications. Left Ventricle Normal left ventricular cavity size. There is mildly increased left ventricular wall thickness. The left ventricular systolic function is hyperdynamic. The visually estimated ejection fraction is >70%. There is no evidence of regional wall motion abnormalities. Diastolic function is normal for age. Right Ventricle Mildly increased right ventricular cavity size. There is normal right ventricular systolic function. Atria The left atrium is moderately dilated. The right atrium is mildly dilated. Aortic Valve Normal aortic valve structure and function. Mitral Valve The mitral valve appears normal. There is trace mitral valve regurgitation. There is no mitral valve stenosis. Pulmonic Valve Normal pulmonic valve structure and function. There is trace pulmonic valve regurgitation. Tricuspid Valve Normal tricuspid valve structure. There is no tricuspid valve regurgitation. Tricuspid regurgitation envelope is inadequate for calculation of right ventricular systolic pressure. Normal right atrial pressure. Great Vessels All visible segments of the aorta are normal in size. The visualized portions of the pulmonary artery and branches are normal. Venous The inferior vena cava is normal in size and collapses greater than 50% with inspiration. Pericardium/Pleural There is no evidence of pericardial effusion. Measurements 2D Linear Measurements IVSd: 1.20 0.6-0.9/0.6-1.0 cm LVIDd: 4.90 3.9-5.3/4.2-5.9 cm LVIDd Index: 2.20 2.4-3.2/2.2-3.1 cm/m2 LVIDs: 2.90 2.0-3.6 cm LVPWd: 1.20 0.7-1.1 cm LA Diam: 4.20 2.7-3.8/3.0-4.0 cm LAIDs Index: 1.88 1.5-2.3 cm/m2 LV Mass: 282.22 67-162/88-224 g LV Mass Index: 126.56 43-95/49-115 g/m2 LVOT Diam: 2.10 3.0+(-)1.3 cm 2D Systolic Function EF 4C: 63.50 >55% EF 2C: 71.70 >55% EF BiP: 68.10 >55% Mitral Valve MV Pk E: 0.52 MV PK A: 0.42 MV Decel Time: 264.00 E/A: 1.20 E'Lateral: 7.18 E'Medial: 6.09 E/E' Med: 8.50 E/E' Lat: 7.20 PHT: 77.00 MVA PHT: 2.86 Decel Daviess: 1.97 Aortic Valve AoV Pk Trae: 1.55 AoV Mn Trae: 0.98 AoV VTI: 0.32 AoV Pk Grad: 10.00 Aov Mn Grad: 5.00 CAROLYN Cont.VTI: 2.62 LVOT LVOT Pk Trae: 1.25 LVOT Mn Trae: 0.77 LVOT VTI: 0.25 LVOT Pk Grad: 6.00 LVOT Mn Grad: 3.00 LVOT Diam: 2.10 LVOT Area: 3.46 Diastolic Function MV Pk E: 0.52 MV Pk A: 0.42 E/A: 1.20 E'Medial: 6.09 E/E' Med: 8.50 E' Laterial: 7.18 E/E' Lat: 7.20 Right Ventricle TAPSE (mm): 26.70 TVS' Trae: 12.60 Tricuspid Valve RA Press: 3.00 Great Vessels Aorta Sinus of Valsalva: 3.20 2.0-3.5 cm Ao Asc: 3.00 2.1-3.4 cm Updated in Other Vendor System with Status of Final Jamey Felipe MD electronically signed on 07/28/2023 7:20:31 PM with status of Final
== END ==
LOC: HO.CARD 15:03
PROVIDERS: PCP Internal Medicine; Visit Provider Internal Medicine Cardiovascular Disease
DX: R94.31 Abnormal electrocardiogram [ECG] [EKG] (principal)
CPT/HCPCS: 93306; Q9957

== ENCOUNTER → 2023-07-28 15:07 | Outpatient (BNV) | payer BC, SELFPAY | PROVIDERS: PCP Internal Medicine; Visit Provider Internal Medicine Cardiovascular Disease | DX: R94.31 Abnormal electrocardiogram [ECG] [EKG] (principal); I42.9 Cardiomyopathy, unspecified | CPT/HCPCS: 93306 ==

== ENCOUNTER 2024-03-14 15:47 | Outpatient (AMB) | payer BC, SELFPAY ==
[2024-03-14 15:48] VITALS: BP 132/80; PULSE 68; BMI 36.9
--- NOTE | 2024-03-14 15:48 | MHC.OFFVIS ---
Vital Signs 03/14/24 15:48 Height 5 ft 8 in Weight 242 lb 8.136 oz BMI 36.9 BP 132/80 Blood Pressure Location Lt brachial Position Sitting Pulse 68 Pulse Source Pulse Oximeter Intake Visit Reasons: 6mnth f/up Allergies No Known Allergies [No Known Allergies*] Allergy (Verified 06/27/23 16:05) Medication List - Last Reconciled 03/14/24 by Jamey Felipe MD atorvastatin 80 mg PO BEDTIME blood pressure monitor As directed clopidogrel 75 mg PO DAILY metformin ER 500 mg PO QPM propranolol ER 80 mg PO DAILY HPI Comments Details: Pleasant 42-year-old gentleman here for follow-up. He was seen for chest pain and non ST-elevation [place] at [facility]. He was transferred to [facility] where cardiac catheterization showed occluded OM branch which was stented with drug-eluting stent. He has been on aspirin and Plavix. He has been tolerating medications without any side effects. No bleeding issues in particular. He was seen by Brabara in follow-up and was complaining of some chest discomfort. Underwent Lexiscan which did not show any significant abnormality. On follow-up his symptoms were improved. Today he returns for follow-up again. He has been doing well. Unfortunately had a significant injury to his left thigh with a saw at work. He underwent surgery and is in recovery and doing physiotherapy. He gets knee buckling when he is walking and fully with physiotherapy his muscles will get stronger and this problem will improve. He has anterolateral T-wave inversions as well as T-wave inversions in 1 2 aVL. These have been present on previous EKGs. He did not have significant left ventricular hypertrophy or apical hypertrophy on echocardiography. Overall he is doing well. He is having no significant symptoms. We discussed about aspirin and Plavix use after 1 year and that Plavix is optional for him. 06/27/23: He returns for follow-up. He has been doing well. No dyspnea or chest pain. Taking medication regularly. 03/14/24: He is here for f/u. Echo was done which showed mild LVH. No obvious apical hypertrophy although ECG changes are suggestive of apical hypertrophy. He has no CP or SOB. No dizziness or syncope. [facility] Medical History CAD (coronary artery disease) HTN (hypertension) Surgical History History of cardiac cath Family History Mother Colon cancer Father Heart disease Diabetes HTN (hypertension) Brother Diabetes HTN (hypertension) Social History Alcohol intake: never Patient Tobacco Use Status: Never used Tobacco Review of Systems Const Denies weakness ENT Denies dizziness Card Denies chest pain, Denies chest pain with activity, Denies syncope, Denies rapid heart rate, Denies pedal edema, Denies edema, Denies leg edema, Denies lightheadedness, Denies palpitations, Denies dyspnea, Denies dyspnea on exertion and Denies orthopnea Resp Denies cough, Denies dyspnea and Denies dyspnea on exertion GI Denies hematochezia and Denies change in stool character Musc Denies abnormal gait, Denies muscle cramps, Denies muscle weakness, Denies numbness, Denies radiating pain into limb and Denies tingling Neuro Denies abnormal gait, Denies dizziness, Denies syncope, Denies numbness, Denies tingling and Denies weakness Endo Denies palpitations Physical Exam Vital Signs: Last Vital Signs Pulse 68 03/14/24 15:48 BP 132/80 03/14/24 15:48 BMI result Body Mass Index 36.9 GENERAL APPEARANCE: in no acute distress, pleasant. NECK: no carotid bruit, no jugular venous distention. SKIN: no suspicious lesions, warm and dry. HEART: no murmurs, regular rate and rhythm. LUNGS: clear to auscultation bilaterally. ABDOMEN: soft, nontender. EXTREMITIES: no edema. PERIPHERAL PULSES: equal. NEUROLOGIC: No gross deficits, AAO X 3 Assessment & Plan Assessment & Plan (1) Stable angina: Code(s): I20.8 - Other forms of angina pectoris Category: Medical (2) HTN (hypertension) with goal to be determined: Code(s): I10 - Essential (primary) hypertension Category: Medical (3) Arrhythmia: Code(s): I49.9 - Cardiac arrhythmia, unspecified Category: Medical Plan 43 male with stable angina and abnormal ECG showing changes of apical hypertrophic CM. Echo has shown mild LVH but no obvious apical hypertrophy. Will do Holter to see if he has any PVCs. If any PVCs then would consider MRI. He is stable from CAD viewpoint. Continue the same meds. BP well controlled. f/u in few months. Orders: Orders ECG 7 day holter monitor Today I42.2 - Other hypertrophic cardiomyopathy Coding Level of Care Code Est Pt Level 4 (06279) Diagnoses Stable angina I20.8 HTN (hypertension) with goal to be determined I10 Arrhythmia I49.9
== END 2024-03-14 16:05 | disposition home or self-care (01) ==
PROVIDERS: PCP Internal Medicine; Visit Provider Internal Medicine Cardiovascular Disease
DX: I20.89 Other forms of angina pectoris (principal); I10 Essential (primary) hypertension; I49.9 Cardiac arrhythmia, unspecified
CPT/HCPCS: 99214

== ENCOUNTER → 2024-03-14 15:47 | Outpatient (BNVA) | payer BC, SELFPAY | PROVIDERS: PCP Internal Medicine; Visit Provider Internal Medicine Cardiovascular Disease ==

== ENCOUNTER → 2024-04-23 11:36 | Outpatient (REF) | payer BC, SELFPAY ==
--- NOTE | 2024-04-23 11:39 | HM_ITS ---
* Total monitoring time 7 days. * Underlying rhythm is sinus with an average rate of 71/Min. * Rare supraventricular ectopy. * Rare ventricular ectopy. * No significant pauses or AV blocks. * Patient marker used in association with sinus rhythm. * No diary events. MTDD
== END ==
LOC: HO.CARD 11:36
PROVIDERS: PCP Internal Medicine; Visit Provider Internal Medicine Cardiovascular Disease
DX: I42.2 Other hypertrophic cardiomyopathy (principal); I47.10 Supraventricular tachycardia, unspecified
CPT/HCPCS: 93242

== ENCOUNTER → 2024-04-23 11:39 | Outpatient (BNV) | payer BC, SELFPAY | PROVIDERS: PCP Internal Medicine; Visit Provider Internal Medicine | DX: I47.10 Supraventricular tachycardia, unspecified (principal); I49.3 Ventricular premature depolarization | CPT/HCPCS: 93244 ==

== ENCOUNTER 2024-06-13 14:21 | Outpatient (AMB) | payer BC, SELFPAY ==
[2024-06-13 14:36] VITALS: BP 130/70; PULSE 57; BMI 35.9
--- NOTE | 2024-06-13 14:36 | MHC.OFFVIS ---
Vital Signs 06/13/24 14:36 Height 5 ft 8 in Weight 235 lb 14.314 oz BMI 35.9 BP 130/70 Blood Pressure Location Lt brachial Position Sitting Pulse 57 Pulse Source Monitor Intake Visit Reasons: 3mth f/up/ 7 day holter Intake Note: 3 mth f/up-7 day holter Clerical Adjuster Required: No Accompanied by: Spouse Allergies No Known Allergies [No Known Allergies*] Allergy (Verified 06/27/23 16:05) Medication List - Last Reconciled 06/13/24 by Jamey Felipe MD amlodipine-atorvastatin 5-40 mg 1 tab PO DAILY atorvastatin 80 mg PO BEDTIME blood pressure monitor As directed clopidogrel 75 mg PO DAILY metformin ER 500 mg PO QPM propranolol ER 80 mg PO DAILY HPI Comments Details: Pleasant 42-year-old gentleman here for follow-up. He was seen for chest pain and non ST-elevation [place] at [facility]. He was transferred to [facility] where cardiac catheterization showed occluded OM branch which was stented with drug-eluting stent. He has been on aspirin and Plavix. He has been tolerating medications without any side effects. No bleeding issues in particular. He was seen by Barbara in follow-up and was complaining of some chest discomfort. Underwent Lexiscan which did not show any significant abnormality. On follow-up his symptoms were improved. Today he returns for follow-up again. He has been doing well. Unfortunately had a significant injury to his left thigh with a saw at work. He underwent surgery and is in recovery and doing physiotherapy. He gets knee buckling when he is walking and fully with physiotherapy his muscles will get stronger and this problem will improve. He has anterolateral T-wave inversions as well as T-wave inversions in 1 2 aVL. These have been present on previous EKGs. He did not have significant left ventricular hypertrophy or apical hypertrophy on echocardiography. Overall he is doing well. He is having no significant symptoms. We discussed about aspirin and Plavix use after 1 year and that Plavix is optional for him. 06/27/23: He returns for follow-up. He has been doing well. No dyspnea or chest pain. Taking medication regularly. 03/14/24: He is here for f/u. Echo was done which showed mild LVH. No obvious apical hypertrophy although ECG changes are suggestive of apical hypertrophy. He has no CP or SOB. No dizziness or syncope. 8/28/24: He is here for f/u. No CP or SOB. BP was high recently and medications were adjusted by PCP and he is on amlodipine-olmesartan combination. BP manually 146/70. EKGs showing changes consistent with apical hypertrophy with anterolateral ST depressions and deep T-wave inversions. [facility] Medical History CAD (coronary artery disease) HTN (hypertension) Surgical History History of cardiac cath Family History Mother Colon cancer Father Heart disease Diabetes HTN (hypertension) Brother Diabetes HTN (hypertension) Social History Alcohol intake: never Patient Tobacco Use Status: Never used Tobacco Review of Systems Const Denies chills, Denies fatigue, Denies fever(s), Denies frequent falls, Denies weakness, Denies weight gain and Denies weight loss ENT Denies dizziness Card Denies chest pain, Denies leg edema, Denies lightheadedness, Denies palpitations, Denies dyspnea and Denies dyspnea on exertion Resp Denies cough, Denies dyspnea and Denies dyspnea on exertion GI Denies hematochezia Musc Denies abnormal gait, Denies muscle weakness, Denies numbness, Denies radiating pain into limb and Denies tingling Neuro Denies abnormal gait, Denies dizziness, Denies frequent falls, Denies numbness, Denies tingling and Denies weakness Endo Denies fatigue and Denies palpitations Physical Exam Vital Signs: Last Vital Signs Pulse 57 06/13/24 14:36 BP 130/70 06/13/24 14:36 BMI result Body Mass Index 35.9 GENERAL APPEARANCE: in no acute distress, pleasant. NECK: no carotid bruit, no jugular venous distention. SKIN: no suspicious lesions, warm and dry. HEART: no murmurs, regular rate and rhythm. LUNGS: clear to auscultation bilaterally. ABDOMEN: soft, nontender. EXTREMITIES: no edema. PERIPHERAL PULSES: equal. NEUROLOGIC: No gross deficits, AAO X 3 Office Procedures EKG Details: Sinus bradycardia 57 beats per minute, normal axis, anterolateral ST depressions and T-wave inversions. Inferior ST depressions. These changes are chronic and are concerning for hypertrophic cardiomyopathy. QTC 436 milliseconds. [id number], Complete Assessment & Plan Assessment & Plan (1) CAD (coronary artery disease): Code(s): I25.10 - Atherosclerotic heart disease of [place] coronary artery without angina pectoris Category: Medical (2) Stable angina: Code(s): I20.8 - Other forms of angina pectoris Category: Medical (3) HTN (hypertension) with goal to be determined: Code(s): I10 - Essential (primary) hypertension Category: Medical (4) Apical variant hypertrophic cardiomyopathy: Code(s): I42.2 - Other hypertrophic cardiomyopathy Category: Medical Plan 43-year-old gentleman with previous history of NSTEMI presenting for follow-up. He is stable from coronary artery disease viewpoint. No anginal symptoms. Blood pressure was elevated and he is started on amlodipine olmesartan combination 5-40 mg. Blood pressure is improving. He will be seeing his primary care physician more frequently and will have blood pressure adjustment further. If blood pressure does not improve within strategy then thiazide diuretics and be added. He has EKG changes concerning for apical hypertrophy. His echocardiography was somewhat limited but did not show any significant evidence of this. This has therapeutic and prognostic significance for this young patient. Have discussed with him and we will request a cardiac MRI to further assess this. If he has to hypertrophy LAD apex and scar then he will need assessment of the electrophysiology. Thank you for allowing me to participate in the care of your patient. Please feel free to contact me if you have any questions. Orders: Orders MR cardiac morph fnct w con Today I42.2 - Other hypertrophic cardiomyopathy Medications: New amlodipine-olmesartan 5-40 mg 1 tab PO DAILY 90 tabs 3RF Coding Level of Care Code Est Pt Level 4 (11729) Diagnoses CAD (coronary artery disease) I25.10 Stable angina I20.8 HTN (hypertension) with goal to be determined I10 Apical variant hypertrophic cardiomyopathy I42.2 CPT Codes EKG - CPT: 90398-[id number], Complete ([id number])
== END 2024-06-13 15:07 | disposition home or self-care (01) ==
PROVIDERS: PCP Internal Medicine; Visit Provider Internal Medicine Cardiovascular Disease
DX: I25.10 Atherosclerotic heart disease of native coronary artery without angina pectoris (principal); I20.89 Other forms of angina pectoris; I10 Essential (primary) hypertension; I42.2 Other hypertrophic cardiomyopathy
CPT/HCPCS: 93010; 99214

== ENCOUNTER → 2024-06-13 14:21 | Outpatient (BNVA) | payer BC, SELFPAY | PROVIDERS: PCP Internal Medicine; Visit Provider Internal Medicine Cardiovascular Disease | DX: I25.118 Atherosclerotic heart disease of native coronary artery with other forms of angina pectoris (principal); I10 Essential (primary) hypertension; I42.2 Other hypertrophic cardiomyopathy; I25.2 Old myocardial infarction | CPT/HCPCS: 93005 ==

== ENCOUNTER 2024-08-27 11:50 | Outpatient (REF) | payer BC, SELFPAY ==
[2024-08-27 13:10] LABS: Anion Gap 12 (12-20); Blood Urea Nitrogen 12 mg/dL (9-16); Calcium 9.4 mg/dL (8.4-10.2); Carbon Dioxide 26 mmol/L (22-29); Chloride 107 mmol/L (96-108); Estimated Glomerular Filt Rate > 60; Glucose Random 102 mg/dL (60-115); Potassium 3.8 mmol/L (3.3-5.1); Sodium 141 mmol/L (135-145)
== END 2024-08-27 11:51 | disposition home or self-care (01) ==
LOC: HO.LAB 11:50
PROVIDERS: Visit Provider Internal Medicine Cardiovascular Disease
DX: I10 Essential (primary) hypertension (principal)
CPT/HCPCS: 36415; 80048

== ENCOUNTER 2024-10-01 09:54 | Outpatient (AMB) | payer BC, SELFPAY ==
--- OUTSIDE RECORDS SUMMARY | 2024-10-01 09:57 | XMS_ITS | Clinical Summary ---
Author Organization [place] [facility] Address [address] [place] [address] Phone Care Team Providers Care Dog Pound Attendant Name Role Phone Carissa NELSON, Chirag Ayers [phone] [place] [address] Primary Care Provider [phone] Reason for Visit and Chief Complaint Established Patient Plan of Treatment Pending Tests Order Diagnosis Results Due Ordering P rovider Follow Up - Return to School / Work Note Chirag Ferrer MD Last Documented On 2 10:06AM ; [facility] Follow Up - Appointment CAYLA Tomlinson on without foreign body, left thigh, init encntr 04/22/22 Chirag Ferrer MD Last Documented On 2 10:06AM ; [facility] [facility] Assessments Includes: Assessments from this encounter No Assessments Recorded Medical Equipment - Implanted Devices Includes: Current Devices No Medical Equipment Recorded Medications Administered Includes: Administered Medications from this encounter No Administered Medications Recorded Vital Signs Includes: Vital Signs from this encounter Vital Name 04/22/2022 09:53A Blood Pressure Sitting (mmHg) 127/87 Pulse Rate-Sitting (bpm) 62 Temp-Temporal 97.3 Height (in) 68 Weight (lb) 242 Body Mass Index (kg/m2) 36.8 Body Surface Area (m2) 2.2 Oxygen Saturation (%) 99 Last Documented: On 04/22/2022 9:53AM ; [facility] Results Includes: Results discussed during this encounter No Results Recorded For Specified Dates History of Present Illness Includes: History of Present Illness from this encounter No History of Present Illness Recorded Social History No Social History Recorded - Smoking Status Unknown Medical History Includes: Medical History addressed during this encounter No Medical History Recorded Family History Includes: Family History addressed during this encounter No Family History Recorded Review of Systems Includes: Review of Systems from this encounter No Review of Systems Recorded Mental Status Includes: Mental Status from this encounter No Mental Status Recorded Functional Status Includes: Functional Status from this encounter No Functional Status Recorded Physical Exam Includes: Physical Exam from this encounter Encounters Encounter Provider Location Date Check-In Time Check-Out Time Diagnosis Established Patient Chirag Ferrer MD [facility] 04/22/20 22 9:41AM 10:07AM Insurance Includes: Active Insurance Policies Plan Name Member ID Group # Subscriber Relationship Effect greta Dates 1 - [facility] [id number] Ashwin Marino 2 - [facility] [id number] Ashwin Marino Clinical Notes Includes: Clinical Notes from this encounter No Clinical Notes Recorded
--- OUTSIDE RECORDS SUMMARY | 2024-10-01 09:57 | XMS_ITS | Clinical Summary ---
Author Organization [facility] Address [address] [place] [address] Phone Care Team Providers Care Laser Set Up Operator Name Role Phone Chain Chirag NELSON Unavailable [phone] [place] [address] Primary Care Provider [phone] Reason for Visit and Chief Complaint New Patient Plan of Treatment 1. May cleanse laceration daily with soap and water. 2. Return to office in 1 week for suture removal. 3. Stay out of work until seen. - Last Documented On 03/08/2022 9:29AM ; [facility] Pending Tests Order Diagnosis Results Due Ordering Nara latif Follow Up - Appointment 1 Week Lacerati on without foreign body, left lower leg, init encntr 03/08/22 Tio Lisa MD Last Documented On 9:29AM ; [facility] Assessments Includes: Assessments from this encounter No Assessments Recorded Medical Equipment - Implanted Devices Includes: Current Devices No Medical Equipment Recorded Medications Administered Includes: Administered Medications from this encounter No Administered Medications Recorded Vital Signs Includes: Vital Signs from this encounter Vital Name 03/08/2022 09:01A Blood Pressure Sitting (mmHg) 151/89 Pulse Rate-Sitting (bpm) 71 Temp-Oral (F) 97 Height (in) 68 Weight (lb) 260 Body Mass Index (kg/m2) 39.5 Body Surface Area (m2) 2.3 Oxygen Saturation (%) 98 Last Documented: On 03/08/2022 9:08AM ; [facility] Results Includes: Results discussed during this encounter No Results Recorded For Specified Dates History of Present Illness Includes: History of Present Illness from this encounter HPI The patient is a 41-year-old male. He sustained a laceration above his left knee on 02/24/2022. This was sutured in the emergency room at [facility]. He is here today for follow-up. Its been 12 days post suturing. Social History No Social History Recorded - Smoking Status Unknown Medical History Includes: Medical History addressed during this encounter No Medical History Recorded Family History Includes: Family History addressed during this encounter No Family History Recorded Review of Systems Includes: Review of Systems from this encounter 1. Healing 12-day-old laceration above the left knee. 2. Incision clean and dry. 3. Active extension left knee and held straight against resistance. Mental Status Includes: Mental Status from this encounter No Mental Status Recorded Functional Status Includes: Functional Status from this encounter No Functional Status Recorded Physical Exam Includes: Physical Exam from this encounter Encounters Encounter Provider Location Date Check-In Time Check-Out Time Diagnosis New Patient Tio Lisa MD [place] [facility] 2 9:00AM 9:32AM Insurance Includes: Active Insurance Policies Plan Name Member ID Group # Subscriber Relationship Effect greta Dates 1 - [facility] [id number] Ashwin Marino 2 - [id number] Clinical Notes Includes: Clinical Notes from this encounter No Clinical Notes Recorded
--- OUTSIDE RECORDS SUMMARY | 2024-10-01 09:57 | XMS_ITS | Clinical Summary ---
Author Organization [place] [facility] Address [address] [place] [address] Phone Care Team Providers Care Director Of Food And Nutrition Services Name Role Phone Chain Chirag NELSON [phone] [place] [address] Primary Care Provider [phone] Reason for Visit and Chief Complaint Established Patient Plan of Treatment No Plan of Treatment Recorded Assessments Includes: Assessments from this encounter No Assessments Recorded Medical Equipment - Implanted Devices Includes: Current Devices No Medical Equipment Recorded Medications Administered Includes: Administered Medications from this encounter No Administered Medications Recorded Results Includes: Results discussed during this encounter [...] Exam Includes: Physical Exam from this encounter No Physical Exam Recorded Insurance Includes: Active Insurance Policies Plan Name Member ID Group # Subscriber Relationship Effect greta Dates 1 - [employer] [id number] Ashwin Marino 2 [facility] [id number] Ashwin Marino Clinical Notes Includes: Clinical Notes from this encounter No Clinical Notes Recorded
--- OUTSIDE RECORDS SUMMARY | 2024-10-01 09:57 | XMS_ITS | Clinical Summary ---
Author Organization [place] [facility] Address [address] [place] [address] Phone Care Team Providers Care Dye Colorist Formulator Name Role Phone Chain Chirag NELSON Unavailable [phone] [place] [address] Primary Care Provider [phone] Reason for Visit and Chief Complaint Established Patient Plan of Treatment Pending Tests Order Diagnosis Results Due Ordering P rovider Follow Up - Appointment 1 Month Lacerati on without foreign body, left thigh, init encntr 03/25/22 Shawnee Bernal PA-C Last Documented On 9:34AM ; [facility] Assessments Includes: Assessments from this encounter No Assessments Recorded Medical Equipment - Implanted Devices Includes: Current Devices No Medical Equipment Recorded Medications Administered Includes: Administered Medications from this encounter No Administered Medications Recorded Vital Signs Includes: Vital Signs from this encounter Vital Name 03/25/2022 09:10A Blood Pressure Sitting (mmHg) 134/91 Pulse Rate-Sitting (bpm) 58 Temp-Oral (F) 96.8 Height (in) 68 Weight (lb) 260 Body Mass Index (kg/m2) 39.5 Body Surface Area (m2) 2.3 Oxygen Saturation (%) 97 Last Documented: On 03/25/2022 9:10AM ; [facility] Results Includes: Results discussed during this encounter [...] Check-In Time Check-Out Time Diagnosis Established Patient Shawnee OCHOA [facility] 03/25/20 22 9:00AM 9:38AM Insurance Includes: Active Insurance Policies Plan Name Member ID Group # Subscriber Relationship Effect greta Dates 1 - [facility] [id number] Ashwin Marino 2 - [facility] [id number] Ashwin Marino Clinical Notes Includes: Clinical Notes from this encounter No Clinical Notes Recorded
--- OUTSIDE RECORDS SUMMARY | 2024-10-01 09:57 | XMS_ITS | Clinical Summary ---
Author Organization [place] [facility] Address [address] [place] [address] Phone Care Team Providers Care Chief Of Hospital Medicine Name Role Phone Chain Chirag NELSON [phone] [place] [address] Primary Care Provider [phone] Reason for Visit and Chief Complaint Established Patient Plan of Treatment Pending Tests Order Diagnosis Results Due Ordering P rovider Follow Up - Appointment 1 Month Laceration without foreign body, left lower leg, init encntr 03/16/22 Amanda Dumont MD Last Documented On 2 9:17AM ; [facility] Follow Up - Appointment 1 Week Lacerati on without foreign body, left lower leg, init encntr 03/16/22 Amanda Dumont MD Last Documented On 2 9:17AM ; [facility] Assessments Includes: Assessments from this encounter No Assessments Recorded Medical Equipment - Implanted Devices Includes: Current Devices No Medical Equipment Recorded Medications Administered Includes: Administered Medications from this encounter No Administered Medications Recorded Vital Signs Includes: Vital Signs from this encounter Vital Name 03/16/2022 08:16A Blood Pressure Sitting R 138/91 Pulse Rate-Sitting (bpm) 64 Temp-Tympanic (F) 97 Height (in) 68 Weight (lb) 260 Body Mass Index (kg/m2) 39.5 Body Surface Area (m2) 2.3 Oxygen Saturation (%) 98 Last Documented: On 03/16/2022 8:22AM ; [facility] Results Includes: Results discussed during [...] Includes: Review of Systems from this encounter CHIEF COMPLAINT Laceration left leg above-knee HISTORY OF PRESENT ILLNESS The patient is a 41-year-old male. He sustained a laceration above his left knee on 02/24/2022. This was sutured in the emergency room at [facility]. He is here today for follow-up. Its been 20 days post suturing. PHYSICAL FINDINGS - Vitals taken 03/08/2022 09:01 am BP-Sitting 151/89 mmHg Pulse Rate-Sitting 71 bpm Temp-Oral 97 F Height 68 in Weight 260 lbs Body Mass Index 39.5 kg/m2 Body Surface Area 2.28 m2 Oxygen Saturation 98 % Dressing removed left thigh. Laceration roughly 6 inches in length. Sutures intact. Wound looks clean and dry. Active extension of left knee. Can keep left knee extended against resistance. IMPRESSION 1. Healing laceration above the left knee. 2. Incision clean and dry. 3. Active extension left knee and held straight against resistance. PLAN - Laceration without foreign body, left lower leg, init encntr Follow Up/Appointment: 1 Week oow until seen again. f/u in 1-2 weeks. PT script given. scar massage in 3-4 days Mental Status Includes: Mental Status from this encounter No Mental Status Recorded Functional Status Includes: Functional Status from this encounter No Functional Status Recorded Physical Exam Includes: Physical Exam from this encounter Encounters Encounter Provider Location Date Check-In Time Check-Out Time Diagnosis Established Patient Amanda Dumont MD [facility] 022 8:20AM 9:22AM Insurance Includes: Active Insurance Policies Plan Name Member ID Group # Subscriber Relationship Effect greta Dates 1 - [employer] [id number] Ashwin Marino 2 [id number] Clinical Notes Includes: Clinical Notes from this encounter No Clinical Notes Recorded
--- OUTSIDE RECORDS SUMMARY | 2024-10-01 09:57 | XMS_ITS ---
Care Plan - [place] [facility] Created on: October 01, 2024 Ashwin Alexandre : 1980 Sex: Male Author Organization [place] [facility] Address [address] [place] [address] Phone Care Team Providers Care Supervisor Bridges And Buildings Name Role Phone Chain Chirag NELSON [phone] [place] [address] Primary Care Provider [phone]
--- OUTSIDE RECORDS SUMMARY | 2024-10-01 09:57 | XMS_ITS ---
Author Organization [place] [facility] Address [address] [place] [address] Phone Care Team Providers Care Windows Vmware Administrator Name Role Phone Chain Chirag NELSON [phone] [place] [address] Primary Care Provider [phone] Plan of Treatment No Plan of Treatment Recorded Assessments Includes: Assessments for all patient encounters No Assessments Recorded Medical Equipment - Implanted Devices Includes: Current and historical Devices No Medical Equipment Recorded Medications Administered Includes: Administered Medications in patient's chart No Administered Medications Recorded Results Includes: Results from 10/01/2023 through 10/01/2024 No Results Recorded For Specified Dates History of Present Illness History of Present Illness not supported for this document type No History of Present Illness Recorded Social History No Social History Recorded - Smoking Status Unknown Medical History Includes: Medical History in patient's chart No Medical History Recorded Family History Includes: Family History in patient's chart No Family History Recorded Review of Systems Review of Systems not supported for this document type No Review of Systems Recorded Mental Status No Mental Status Recorded Functional Status No Functional Status Recorded Physical Exam Physical Exam not supported for this document type No Physical Exam Recorded Insurance Includes: Active Insurance Policies Plan Name Member ID Group # Subscriber Relationship Effect greta Dates 1 - [employer] [id number] Ashwin Marino 2 [id number] Clinical Notes Includes: Signed Clinical Notes starting from 09/26/2022 No Clinical Notes Recorded
[2024-10-01 10:12] VITALS: BP 130/72; PULSE 78; BMI 36.2
--- NOTE | 2024-10-01 10:12 | MHC.OFFVIS ---
Vital Signs 10/01/24 10:12 Height 5 ft 8 in Weight 238 lb 1.588 oz BMI 36.2 BP 130/72 Blood Pressure Location Lt brachial Position Sitting Pulse 78 Pulse Source Pulse Oximeter Intake Visit Reasons: 4 mth s/p cardiac mri Intake Note: 4 mth f/up/ cardiac MRI Frame Pulley Mortising Machine Operator Required: No Accompanied by: Self / Same As Patient Allergies No Known Allergies [No Known Allergies*] Allergy (Verified 06/27/23 16:05) Medication List - Last Reconciled 10/01/24 by Jamey Felipe MD amlodipine-atorvastatin 10-40 mg 1 tab PO DAILY atorvastatin 80 mg PO BEDTIME blood pressure monitor As directed clopidogrel 75 mg PO DAILY metformin ER 500 mg PO QPM propranolol ER 80 mg PO DAILY HPI Comments Details: Pleasant 44-year-old gentleman here for follow-up. He was seen for chest pain and non ST-elevation MO at [facility]. He was transferred to [facility] where cardiac catheterization showed occluded OM branch which was stented with drug-eluting stent. He has been on aspirin and Plavix. He has been tolerating medications without any side effects. No bleeding issues in particular. He was seen by Barbara in follow-up and was complaining of some chest discomfort. Underwent Lexiscan which did not show any significant abnormality. On follow-up his symptoms were improved. Today he returns for follow-up again. He has been doing well. Unfortunately had a significant injury to his left thigh with a saw at work. He underwent surgery and is in recovery and doing physiotherapy. He gets knee buckling when he is walking and fully with physiotherapy his muscles will get stronger and this problem will improve. He has anterolateral T-wave inversions as well as T-wave inversions in 1 2 aVL. These have been present on previous EKGs. He did not have significant left ventricular hypertrophy or apical hypertrophy on echocardiography. Overall he is doing well. He is having no significant symptoms. We discussed about aspirin and Plavix use after 1 year and that Plavix is optional for him. 06/27/23: He returns for follow-up. He has been doing well. No dyspnea or chest pain. Taking medication regularly. 03/14/24: He is here for f/u. Echo was done which showed mild LVH. No obvious apical hypertrophy although ECG changes are suggestive of apical hypertrophy. He has no CP or SOB. No dizziness or syncope. 06/13/24: He is here for f/u. No CP or SOB. BP was high recently and medications were adjusted by PCP and he is on amlodipine-olmesartan combination. BP manually 146/70. EKGs showing changes consistent with apical hypertrophy with anterolateral ST depressions and deep T-wave inversions. 10/01/2024: He is here for follow-up. He underwent cardiac MRI because his EKG had changes consistent with apical hypertrophy. Cardiac MRI showed normal left ventricular size with moderately increased wall thickness in the mid to apical lateral segment. Mildly reduced left ventricular systolic function with EF 49%. Mild hypokinesis of the basal to mid lateral segment. Postcontrast imaging demonstrated subendocardial to up to 50% transmural delayed enhancement in the basal to mid lateral segment consistent with ischemic scar. Findings were overall consistent with ischemic cardiomyopathy with lateral ischemic scar, coexisting hypertrophic cardiomyopathy is also possible given moderate asymmetric hypertrophy of the mid to apical lateral wall segments. He has been active playing basketball with his daughter and doing pushups and some weights. He has no symptoms with activity. When he presented with NSTEMI he had chest pain as well as arm discomfort and he has not had any similar symptoms since then. His previous echocardiography showed hyperdynamic LV of more than 70% but now MRI was read as mildly reduced or low normal EF of 49%. No palpitations. No syncope. [facility] Medical History (Updated 10/01/24 @ 10:45 by Jamey Felipe MD) CAD (coronary artery disease) HTN (hypertension) Surgical History History of cardiac cath Family History Mother Colon cancer Father Heart disease Diabetes HTN (hypertension) Brother Diabetes HTN (hypertension) Social History Alcohol intake: never Patient Tobacco Use Status: Never used Tobacco Review of Systems Const Denies chills, Denies fatigue, Denies fever(s), Denies frequent falls, Denies weakness, Denies weight gain and Denies weight loss ENT Denies dizziness Card Denies chest pain, Denies leg edema, Denies lightheadedness, Denies palpitations, Denies dyspnea and Denies dyspnea on exertion Resp Denies cough, Denies dyspnea and Denies dyspnea on exertion GI Denies hematochezia Musc Denies abnormal gait, Denies muscle weakness, Denies numbness, Denies radiating pain into limb and Denies tingling Neuro Denies abnormal gait, Denies dizziness, Denies frequent falls, Denies numbness, Denies tingling and Denies weakness Endo Denies fatigue and Denies palpitations Physical Exam Vital Signs: Last Vital Signs Pulse 78 10/01/24 10:12 BP 130/72 10/01/24 10:12 BMI result Body Mass Index 36.2 GENERAL APPEARANCE: in no acute distress, pleasant. NECK: no carotid bruit, no jugular venous distention. SKIN: no suspicious lesions, warm and dry. HEART: no murmurs, regular rate and rhythm. LUNGS: clear to auscultation bilaterally. ABDOMEN: soft, nontender. EXTREMITIES: no edema. PERIPHERAL PULSES: equal. NEUROLOGIC: No gross deficits, AAO X 3 Assessment & Plan Assessment & Plan (1) Stable angina: Code(s): I20.8 - Other forms of angina pectoris Category: Medical (2) HTN (hypertension): Code(s): I10 - Essential (primary) hypertension Category: Medical (3) Apical variant hypertrophic cardiomyopathy: Code(s): I42.2 - Other hypertrophic cardiomyopathy Category: Medical Plan 44-year-old gentleman who is presenting for follow-up. He has known history of coronary disease with previous OM PCI in the setting of NSTEMI. His LVEF in the past was normal. Last EF assessment was in July 2023. He recently had cardiac MRI to rule out hypertrophic cardiomyopathy fair up to 50% scar was noticed in the lateral wall with EF of 49%. He also had moderate LVH involving mid to apical lateral segment. His ECG has apical hypertrophy like changes. He has no symptoms currently. Never had syncope before. He had rare ventricular ectopy on his 7 day Holter monitor in April 2024. I am referring him to EP for further assessment. Apical hypertrophy in general has lower risk for sudden cardiac but given his young age and presence of EKG changes and hypertrophy I think it warrants a discussion with electrophysiology. He interestingly also has scar involving the lateral wall. When we took him for angiography he had 100% occlusion of the OM and I think that this got is explained by that event. He is LVEF on the other hand is lower compared to July 2023. I will review the MRI and will have a discussion with the physician who reported. If truly EF is low then I think he should be on different medicines then amlodipine and propranolol. Thank you for allowing me to participate in the care of your patient. Please feel free to contact me if you have any questions. Coding Level of Care Code Est Pt Level 5 (91074) Diagnoses Stable angina I20.8 HTN (hypertension) I10 Apical variant hypertrophic cardiomyopathy I42.2
== END 2024-10-01 10:46 | disposition home or self-care (01) ==
PROVIDERS: PCP Internal Medicine; Visit Provider Internal Medicine Cardiovascular Disease
DX: I20.89 Other forms of angina pectoris (principal); I42.2 Other hypertrophic cardiomyopathy; I10 Essential (primary) hypertension
CPT/HCPCS: 99214

== ENCOUNTER 2025-03-25 15:38 | Outpatient (AMB) | payer BC, SELFPAY ==
--- NOTE | 2025-03-25 15:40 | A.OFFVIS_ITS ---
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 He was seen for chest pain and non ST-elevation [place] at [facility]. He was transferred to [facility] where cardiac catheterization showed occluded OM branch which was stented with drug-eluting stent. He has been on aspirin and Plavix. He has been tolerating medications without any side effects. No bleeding issues in particular. He was seen by Barbara in follow-up and was complaining of some chest discomfort. Underwent Lexiscan which did not show any significant abnormality. On follow-up his symptoms were improved. Today he returns for follow-up again. He has been doing well. Unfortunately had a significant injury to his left thigh with a saw at work. He underwent surgery and is in recovery and doing physiotherapy. He gets knee buckling when he is walking and fully with physiotherapy his muscles will get stronger and this problem will improve. He has anterolateral T-wave inversions as well as T- wave inversions in 1 2 aVL. These have been present on previous EKGs. He did not have significant left ventricular hypertrophy or apical hypertrophy on echocardiography. Overall he is doing well. He is having no significant symptoms. We discussed about aspirin and Plavix use after 1 year and that Plavix is optional for him. 06/27/23: He returns for follow-up. He has been doing well. No dyspnea or chest pain. Taking medication regularly. 03/14/24: He is here for f/u. Echo was done which showed mild LVH. No obvious apical hypertrophy although ECG changes are suggestive of apical hypertrophy. He has no CP or SOB. No dizziness or syncope. 06/13/24: He is here for f/u. No CP or SOB. BP was high recently and medications were adjusted by PCP and he is on amlodipine-olmesartan combination. BP manually 146/70. EKGs showing changes consistent with apical hypertrophy with anterolateral ST depressions and deep T-wave inversions. 10/01/2024: He is here for follow-up. He underwent cardiac MRI because his EKG had changes consistent with apical hypertrophy. Cardiac MRI showed normal left ventricular size with moderately increased wall thickness in the mid to apical lateral segment. Mildly reduced left ventricular systolic function with EF 49%. Mild hypokinesis of the basal to mid lateral segment. Postcontrast imaging demonstrated subendocardial to up to 50% transmural delayed enhancement in the basal to mid lateral segment consistent with ischemic scar. Findings were overall consistent with ischemic cardiomyopathy with lateral ischemic scar, coexisting hypertrophic cardiomyopathy is also possible given moderate asym metric hypertrophy of the mid to apical lateral wall segments. He has been active playing basketball with his daughter and doing pushups and some weights. He has no symptoms with activity. When he presented with NSTEMI he had chest pain as well as arm discomfort and he has not had any similar symptoms since then. His previous echocardiography showed hyperdynamic LV of more than 70% but now MRI was read as mildly reduced or low normal EF of 49%. No palpitations. No syncope. 03/25/25: He is here for f/u. No new symptoms. He has seen EP and no indication for ICD placement. Taking meds regularly. [facility] Medical History CAD (coronary artery disease) HTN (hypertension) Surgical History History of cardiac cath Family History Mother Colon cancer Father Heart disease Diabetes HTN (hypertension) Brother Diabetes HTN (hypertension) Social History Alcohol intake: never Patient Tobacco Use Status: Never used Tobacco Review of Systems Const Denies chills, Denies fatigue, Denies fever(s), Denies frequent falls, Denies weakness, Denies weight gain and Denies weight loss ENT Denies dizziness Card Denies chest pain, Denies leg edema, Denies lightheadedness, Denies palpitations, Denies dyspnea and Denies dyspnea on exertion Resp Denies cough, Denies dyspnea and Denies dyspnea on exertion GI Denies hematochezia Musc Denies abnormal gait, Denies muscle weakness, Denies numbness, Denies radiating pain into limb and Denies tingling Neuro Denies abnormal gait, Denies dizziness, Denies frequent falls, Denies numbness, Denies tingling and Denies weakness Endo Denies fatigue and Denies palpitations Physical Exam Vital Signs: Last Vital Signs Pulse 71 03/25/25 15:42 BP 120/72 03/25/25 15:42 BMI result Body Mass Index 36.3 GENERAL APPEARANCE: in no acute distress, pleasant. NECK: no carotid bruit, no jugular venous distention. SKIN: no suspicious lesions, warm and dry. HEART: no murmurs, regular rate and rhythm. LUNGS: clear to auscultation bilaterally. ABDOMEN: soft, nontender. EXTREMITIES: no edema. PERIPHERAL PULSES: equal. NEUROLOGIC: No gross deficits, AAO X 3 Office Procedures EKG Details: Sinus rhythm 71 beats per minute, normal axis, inferolateral ST depressions and T-wave inversions (old), QTC 430 milliseconds. [id number], Complete Assessment & Plan Assessment & Plan (1) HTN (hypertension): Code(s): I10 - Essential (primary) hypertension Category: Medical (2) Apical variant hypertrophic cardiomyopathy: Code(s): I42.2 - Other hypertrophic cardiomyopathy Category: Medical (3) Stable angina: Code(s): I20.8 - Other forms of angina pectoris Category: Medical Plan 44-year-old gentleman who is presenting for follow-up. He has known history of coronary disease with previous OM PCI in the setting of NSTEMI. His LVEF in the past was normal. Last EF assessment was in July 2023. He recently had [facility] MRI to rule out hypertrophic cardiomyopathy and 50% scar was noticed in the lateral wall with EF of 49%. He also had moderate LVH involving mid to apical lateral segment. His ECG has apical hypertrophy like changes. He has no symptoms currently. Never had syncope before. He had rare ventricular ectopy on his 7 day Holter monitor in April 2024. He was referred to EP and it was advised to monitor him clinically for now, no indication for ICD. Taking medications and tolerating. f/u in 6 months. Thank you for allowing me to participate in the care of your patient. Please feel free to contact me if you have any questions. Coding Level of Care Code Est Pt Level 4 (57570) Complex EM visit Add On G2211 Diagnoses HTN (hypertension) I10 Apical variant hypertrophic cardiomyopathy I42.2 Stable angina I20.8 CPT Codes EKG - CPT: 44070-[id number], Complete ([id number])
[2025-03-25 15:42] VITALS: BP 120/72; PULSE 71; BMI 36.3
--- OUTSIDE RECORDS SUMMARY | 2025-03-25 17:21 | XMS_ITS | Clinical Summary ---
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 Name Role Phone Unavailable Primary Care Provider Unavailabl e Social History Tobacco Use Types Packs/Day Years Used Date Smoking Tobacco: Never Assessed Sex and Gender Information Value Date Recorded Sex Assigned at Not on file Legal Sex Male 6:34 AM EST Gender Identity Not on file Sexual Orientation Not on file Plan of Treatment Health Maintenance Due Date Last Done Comments DTaP,Tdap,and Td Vaccines (1 - Tdap) 1999 Hepatitis B Vaccines (1 of 3 - 19+ 3-dose series) 1999 Cholesterol Screening (Lipid Panel) 09/19/2022 Depression Screening 09/19/2022 HIV Screening 09/19/2022 Hepatitis C Screening 09/19/2022 Social Influencers of Health Screening 09/19/2022 COVID-19 Vaccine (2023-2 5 season) 2024 Influenza Vaccine (Season Ended) 2025 HIB Vaccines Aged Out No longer eligi ble based on patient's age to complete this topic HPV Vaccines Aged Out No longer eligi ble based on patient's age to complete this topic Hepatitis A Vaccines Aged Out No long er eligible based on patient's age to complete this topic IPV Vaccines Aged Out No longer eligi ble based on patient's age to complete this topic MMR Vaccines Aged Out No longer eligi ble based on patient's age to complete this topic Meningococcal ACWY Vaccine Aged Out N o longer eligible based on patient's age to complete this topic Meningococcal B Vaccine Aged Out No l onger eligible based on patient's age to complete this topic Pneumococcal Vaccine: Pediat rics (0 to 5 Years) and At-Risk Patients (6 to 64 Years) Aged Out No longer eligible b ased on patient's age to complete this topic RSV Immunization Patients Un delmy 20 months Aged Out No longer eligible b ased on patient's age to complete this topic Varicella Vaccines Aged Out No longer eligible based on patient's age to complete this topic
== END 2025-03-25 16:07 | disposition home or self-care (01) ==
LOC: HO.HCS 15:39
PROVIDERS: PCP Internal Medicine; Visit Provider Internal Medicine Cardiovascular Disease
DX: I10 Essential (primary) hypertension (principal); I42.2 Other hypertrophic cardiomyopathy; I20.89 Other forms of angina pectoris
CPT/HCPCS: 93010; 99214

== ENCOUNTER → 2025-03-25 15:38 | Outpatient (BNVA) | payer BC, SELFPAY | PROVIDERS: PCP Internal Medicine; Visit Provider Internal Medicine Cardiovascular Disease | DX: I10 Essential (primary) hypertension (principal); I42.2 Other hypertrophic cardiomyopathy; I25.118 Atherosclerotic heart disease of native coronary artery with other forms of angina pectoris; Z98.61 Coronary angioplasty status; Z98.890 Other specified postprocedural states | CPT/HCPCS: 93005 ==

== ENCOUNTER 2025-10-14 09:15 | Outpatient (AMB) | payer BC, SELFPAY ==
--- NOTE | 2025-10-14 09:18 | MHC.OFFVIS ---
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 His history is significant for a prior NSTEMI treated with PCI to an obtuse marginal artery. His last echocardiogram on 07/28/2023 showed an EF greater than 70%, normal right ventricular systolic function, a moderately dilated left atrium, and could not rule out apical hypertrophy. A Holter monitor from 04/23/2024 revealed sinus rhythm with a mean heart rate of 71 bpm and rare SVEs and VEs, and his last EKG on 03/25/2025 showed sinus rhythm with ST and T wave abnormalities in the inferior and lateral leads. The patient's other past medical history includes hypertension, hyperlipidemia, obesity, and diabetes mellitus. His current medications include atorvastatin, amlodipine, clopidogrel, propranolol, and metformin, which he reports taking as directed. He reports no chest pain, shortness of breath, palpitations, or lightheadedness. Since his last visit, he developed an umbilical hernia after doing sit-ups and has a surgical repair scheduled for 12/09 at [facility]. For physical activity, he has a home gym and uses the treadmill for 30-40 minutes daily in addition to lifting weights. The patient notes significant psychosocial stress related to his adult daughter's recurrent suicide attempts, with the most recent event occurring yesterday. [facility] Medical History CAD (coronary artery disease) HTN (hypertension) Surgical History History of cardiac cath Family History Mother Colon cancer Father Heart disease Diabetes HTN (hypertension) Brother Diabetes HTN (hypertension) Social History Alcohol intake: never Patient Tobacco Use Status: Never used Tobacco Review of Systems Const All systems reviewed & are unremarkable except as noted in HPI and below Denies chills, Denies fatigue, Denies fever(s), Denies frequent falls, Denies weakness, Denies weight gain and Denies weight loss ENT Denies dizziness Card Denies chest pain, Denies leg edema, Denies lightheadedness, Denies palpitations, Denies dyspnea and Denies dyspnea on exertion Resp Denies cough, Denies dyspnea and Denies dyspnea on exertion GI Denies hematochezia Musc Denies abnormal gait, Denies muscle weakness, Denies numbness, Denies radiating pain into limb and Denies tingling Neuro Denies abnormal gait, Denies dizziness, Denies frequent falls, Denies numbness, Denies tingling and Denies weakness Endo Denies fatigue and Denies palpitations Physical Exam Vital Signs: Last Vital Signs Pulse 60 10/14/25 09:20 BP 120/76 10/14/25 09:20 BMI result Body Mass Index 34.5 Const General: cooperative, healthy appearing, comfortable and no acute distress Orientation/consciousness: patient oriented x3 Neck Neck: Yes normal visual inspection Resp Effort & Inspection: normal respiratory effort Auscultation: clear to auscultation bilaterally, no rales, no rhonchi and no wheezes Cardio Rate: regular rate Rhythm: regular rhythm Heart sounds: S1 normal heart sound present, S2 normal heart sound present, no gallops, no murmurs and no rubs Neuro General: patient oriented x3 Extrem General: Yes normal to inspection, No no pedal edema and No calf tenderness Psych Appearance: grossly normal Mental Status: mental status grossly normal Speech and movement: Normal speech and movement present Assessment & Plan Assessment & Plan (1) CAD (coronary artery disease): Code(s): I25.10 - Atherosclerotic heart disease of [place] coronary artery without angina pectoris Category: Medical Plan: Presented to [facility] for 2020 with chest discomfort, ruled in for NSTEMI. Cardiac catheterization 01/2021 showing occluded OM 1 branch, MITZI placed. He has done well since that time without recurrent symptoms. Last echo 07/28/2023 showing EF greater than 70%, normal RV, left atrium moderate dilated can not rule out apical hypertrophy. Continue clopidogrel for antiplatelet. Continue atorvastatin with ideal LDL goal less than 70. Continue propranolol for heart rate and blood pressure control. Signs and symptoms of angina reviewed with him. Cardiology follow-up in 6 months, sooner if needed (2) History of cardiac cath: Comment: 02/02/21 LM, LCx, RCA normal, occluded OM1 branch, MITZI placed Code(s): Z98.890 - Other specified postprocedural states Category: Surgical Plan: As above (3) HTN (hypertension) with goal to be determined: Code(s): I10 - Essential (primary) hypertension Category: Medical Plan: Blood pressure goal less than 130/80. Well controlled at this time. No med changes made. (4) Apical variant hypertrophic cardiomyopathy: Code(s): I42.2 - Other hypertrophic cardiomyopathy Category: Medical Plan: Last echo showing apical hypertrophy. He had cardiac MRI 09/05/2024 showing findings consistent with ischemic cardiomyopathy with lateral ischemic scar, hypertrophic cardiomyopathy is also possible as evidence of moderate asymmetric hypertrophy of the mid to apical lateral wall segments. Asymptomatic. Blood pressure controlled. (5) Abnormal ECG: Code(s): R94.31 - Abnormal electrocardiogram [ECG] [EKG] Category: Medical Plan: EKG with chronic ST and T-wave abnormalities in the inferior lateral leads. (6) Non-ST elevation VA (NSTEMI): Code(s): I21.4 - Non-ST elevation (NSTEMI) myocardial infarction Category: Medical Plan: 01/2021 (7) Preop cardiovascular exam: Code(s): Z01.810 - Encounter for preprocedural cardiovascular examination Category: Medical Plan: He is preop for umbilical hernia repair. He can proceed with low to intermediate cardiac risk. Clopidogrel can be held if need for the procedure and plan restart as soon as cleared by surgeon to do so. Call/consult Cardiology if needed. Plan I reviewed the patient's current cardiovascular status. He is clinically stable on his current medical regimen and reports no new or worsening cardiac symptoms despite maintaining a good level of physical activity. We discussed his upcoming umbilical hernia repair and the need for postoperative rest. I acknowledged the significant psychosocial stress he is currently experiencing due to his daughter's health crisis and noted its potential impact on his blood pressure. Patient Instructions: - Continue to take all of your medications as prescribed. - After your surgery, you will need to rest and avoid heavy activity to let your body heal. - You are doing a great job with your home workouts; continue to exercise as you feel you are able. - Cardiology follow up in 6 months, sooner if needed Patient was informed and verbally consented to the use of an ambient scribe for clinic note documentation during this visit. Visit time spent on chart review, interview, assessment, orders, documentation. Coding Level of Care Code Est Pt Level 4 (19427) Add On Problem Visit Only Diagnoses CAD (coronary artery disease) I25.10 History of cardiac cath Z98.890 HTN (hypertension) with goal to be determined I10 Apical variant hypertrophic cardiomyopathy I42.2 Abnormal ECG R94.31 Non-ST elevation VA (NSTEMI) I21.4 Preop cardiovascular exam Z01.810 Time Spent (min) 28
[2025-10-14 09:20] VITALS: BP 120/76; PULSE 60; BMI 34.5
--- OUTSIDE RECORDS SUMMARY | 2025-10-14 09:31 | XMS_ITS | Clinical Summary ---
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 Name Role Phone Unavailable Primary Care Provider [...] of 3 - 19+ 3-dose series) 1999 HPV Vaccines (1 - 3-dose SCD M series) 2007 Depression Screening 10/17/2024 COVID-19 Vaccine (1 - 2024-2 6 season) 2025 Influenza Vaccine (#1) 2025 RSV Immunization Adult Patie nts (1 - 1-dose 75+ series) 2055 HIB Vaccines Aged Out No longer eligi [...] 5 Years) and At-Risk Patients (6 to 49 Years) Aged Out No longer eligible b ased on patient's age to complete this topic RSV Immunization Patients Un delmy 20 months Aged Out No longer eligible b ased on patient's age to complete this topic Varicella Vaccines Aged Out No longer eligible based on patient's age to complete this topic
== END 2025-10-14 09:47 | disposition home or self-care (01) ==
LOC: HO.HCS 09:16
PROVIDERS: PCP Internal Medicine; Visit Provider Nurse Practitioner Family
DX: I25.10 Atherosclerotic heart disease of native coronary artery without angina pectoris (principal); Z98.890 Other specified postprocedural states; I10 Essential (primary) hypertension; I42.2 Other hypertrophic cardiomyopathy; R94.31 Abnormal electrocardiogram [ECG] [EKG]; I21.4 Non-ST elevation (NSTEMI) myocardial infarction; Z01.810 Encounter for preprocedural cardiovascular examination
CPT/HCPCS: 99214